=== PATIENT | female | born 1930 | race Hispanic/Latino ===

== ENCOUNTER 2017-06-22 11:10 | Emergency (ER) | payer MEDICARE, BC ==
[2017-06-22 12:16] VITALS: TEMP 98.4
--- NOTE | 2017-06-22 12:17 | ED PDOC ---
Arrival/HPI - History of Present Illness Time/Duration: Prior to Arrival - General Time Seen by Provider: 06/22/17 11:11 - History of Present Illness Narrative History of Present Illness (Text): 06/22/17 12:14 Patient is an 87 F with past medical history of hypertension, arthritis, and dementia presenting to [facility] emergency department by Elma due to call from healthcare workers Nelly and Gilda at patient's residence [address] [place] [address] in [place], [place]. As per patient's niece, she received a call from Nelly stating patient is unable to full care for herself. Endorses that patient normally eats one meal a day and has not been attending the lunches as before. Nelly also endorses that patient has lost a considerable amount of weight. Patient' s family was contacted to see if a 24 hour care or [place] [facility] [place] could be established for patient as assisted living does not meet patient's daily needs. (Romel Arauz) Past Medical History - Provider Review Nursing Documentation Reviewed: Yes - Infectious Disease Hx of Infectious Diseases: None - Reproductive Menopause: Yes - Cardiac Hx Hypotension: Yes - Pulmonary Hx Respiratory Disorders: No - Genitourinary/Gynecological Hx Genitourinary Disorders: No - Psychiatric Hx Psychophysiologic Disorder: No Hx Substance Use: No - Anesthesia Hx Anesthesia: No Family/Social History - Physician Review Nursing Documentation Reviewed: Yes Family/Social History: Other (non-contributory) Smoking Status: Unknown If Ever Smoked Hx Alcohol Use: No Hx Substance Use: No Allergies/Home Meds Allergies/Adverse Reactions: Allergies No Known Allergies Allergy (Verified 06/22/17 11:26) Home Medications: Home Meds Medication Instructions Recorded Confirmed Bimatoprost [Lumigan] 1 drop BOTHEYES HS 06/22/17 06/22/17 Brimonidine Tartrate [Alphagan P 1 drop LEFTEYE DAILY 06/22/17 06/22/17 0.1 % Ophth] Dorzolamide 2%/Timolol 0.5% 1 drop BOTHEYES DAILY 06/22/17 06/22/17 [Cosopt 2%-0.5% Opht] Lisinopril/Hydrochlorothiazide 1 tab PO DAILY 06/22/17 06/22/17 [Lisinopril-Hctz 20-12.5 mg Tab] amLODIPine [Norvasc] 1 tab PO DAILY 06/22/17 06/22/17 traMADol/Acetaminophen [Ultracet 1 tab PO BID 06/22/17 06/22/17 37.5/325 mg] Review of Systems - Review of Systems Constitutional: absent: Fatigue, Weight Change, Fevers, Night Sweats Eyes: absent: Vision Changes ENT: absent: Hearing Changes, Tinnitus Respiratory: absent: SOB, Cough Cardiovascular: absent: Chest Pain, Palpitations Gastrointestinal: absent: Abdominal Pain, Diarrhea, Nausea, Vomiting Genitourinary Female: absent: Dysuria Skin: absent: Rash, Pruritis Neurological: absent: Headache, Dizziness Endocrine: Normal Hemo/Lymphatic: Normal Psychiatric: absent: Anxiety Physical Exam Vital Signs Reviewed: Yes Temperature: Afebrile Blood Pressure: Normal Pulse: Regular Respiratory Rate: Normal Appearance: Positive for: Well-Appearing, Non-Toxic, Comfortable Pain Distress: None Mental Status: Positive for: Alert and Oriented X 3 - Systems Exam Head: Present: Atraumatic, Normocephalic Pupils: Present: PERRL Extroacular Muscles: Present: EOMI Conjunctiva: Present: Normal Mouth: Present: Moist Mucous Membranes Neck: Present: Normal Range of Motion Respiratory/Chest: Present: Clear to Auscultation Cardiovascular: Present: Regular Rate and Rhythm, Normal S1, S2 Abdomen: No: Tenderness, Normal Bowel Sounds Upper Extremity: Present: Normal Inspection. No: Cyanosis, Edema Lower Extremity: No: Normal Inspection (overgrown toe nails bilaterally), Edema Neurological: Present: GCS=15, CN II-XII Intact, Speech Normal Skin: Present: Warm, Dry Psychiatric: Present: Alert, Oriented x 3, Normal Insight, Normal Concentration Vital Signs Temp Pulse Resp BP Pulse Ox 06/22/17 17:56 57 L 18 155/61 H 96 06/22/17 16:00 61 18 158/65 H 96 06/22/17 14:41 60 174/70 H 06/22/17 14:00 59 L 18 168/61 H 96 06/22/17 12:15 98.4 F 56 L 20 181/59 H 95 Medical Decision Making Re-evaluation Time: 18:36 - Lab Interpretations I have reviewed the lab results: Yes Interpretation: No clinic. lab abnormalty (with exception of mild UTI on UA) - RAD Interpretation Enrollment Management Director: Radiologist - EKG Interpretation Type: 12 lead EKG ED Course and Treatment: Patient Seen With Resident: In agreement with resident note which contains more details about the patient. Patient was seen and evaluated with resident. Came up with plan and treatment together. An 87 year old female with loss of appetite, failure to thrive and weight loss. Additional HPI as noted by resident. Ordered EKG, Chest X-ray, labs and Urinalysis. (Tonio Shannon) Explained to patient's family that [place] [facility] [place] care can be established by means of the patient's PMD for further guide on finding a suitable [place] facility. Patient states she feels fine and denies weakness, depression, abdominal pain, dysuria. Due to patient's labs being completely normal with exception of mild UTI, patient will be discharged with keflex. 06/22/17 18:37 (Romel Arauz) - Lab Interpretations Lab Results: 06/22/17 13:30 06/22/17 13:30 Lab Results 06/22/17 15:11: Urine Color Yellow, Urine Appearance Clear, Urine pH 7.0, Ur Specific [place] 1.015, Urine Protein Negative, Urine Glucose (UA) Negative, Urine Ketones Negative, Urine Blood Trace-intact H, Urine Nitrate Negative, Urine Bilirubin Negative, Urine Urobilinogen 0.2, Ur Leukocyte Esterase Moderate H, Urine RBC 0 - 2, Urine WBC 1 - 3, Ur Epithelial Cells 0 - 2, Urine Bacteria Small 06/22/17 13:30: Sodium 145, Potassium 4.4, Chloride 104, Carbon Dioxide 31, Anion Gap 16, BUN 49 H, Creatinine 1.4 H, Est GFR ( Amer) 43, Est GFR ( Non-Af Amer) 35, Random Glucose 95, Calcium 9.7, Phosphorus 3.6, Magnesium 2.1, Total Bilirubin 0.7, AST 21, ALT 26, Alkaline Phosphatase 60, Total Protein 7.4 , Albumin 4.2, Globulin 3.3, Albumin/Globulin Ratio 1.3 06/22/17 13:30: PT 12.0, INR 1.04, APTT 26.2 06/22/17 13:30: WBC 6.8, RBC 3.92, Hgb 11.8 L, Hct 35.9 L, MCV 91.6, MCH 30.1, MCHC 32.9, RDW 12.7, Plt Count 230, MPV 12.3 H, Gran % 67.9, Lymph % (Auto) 22.3 , [place] % (Auto) 8.2 H, Eos % (Auto) 1.3 L, Baso % (Auto) 0.3, Gran # 4.64, Lymph # (Auto) 1.5, [place] # (Auto) 0.6, Eos # (Auto) 0.1, Baso # (Auto) 0.02 - RAD Interpretation Radiology Orders: 06/22/17 11:55 CHEST PORTABLE [RAD] Stat - Medication Orders Current Medication Orders: Amlodipine Besylate (Norvasc) 5 mg PO DAILY [facility] Last Admin: 06/22/17 14:30 Dose: Not Given Non-Admin Reason: Patient Refused Comments: Patient took this morning Hydrochlorothiazide (Microzide) 12.5 mg PO DAILY [facility] Sodium Chloride (Sodium Chloride 0.9%) 1,000 mls @ 80 mls/hr IV .[id number] SRIKANTH Last Admin: 06/22/17 14:29 Dose: 80 mls/hr eMAR Start Stop Document 06/22/17 14:29 SS (Rec: 06/22/17 14:29 SS [id number]) Intravenous Solution Start Date 06/22/17 Start Time 14:29 Lisinopril (Zestril) 20 mg PO DAILY [facility] Discontinued Medications Hydralazine HCl (Apresoline) 5 mg IVP ONCE ONE Stop: 06/22/17 14:24 Last Admin: 06/22/17 14:41 Dose: 5 mg IVP Administration Document 06/22/17 14:41 SS (Rec: 06/22/17 14:41 SS [id number]) Charges for Administration # of IVP Administrations 1 MAR Pulse and Blood Pressure Document 06/22/17 14:41 SS (Rec: 06/22/17 14:41 SS [id number]) Pulse Pulse Rate (60-90) 60 Blood Pressure Blood Pressure (100/60-150/90) 174/70 Disposition/Present on Arrival - Present on Arrival Any Indicators Present on Arrival: No History of DVT/PE: No History of Uncontrolled Diabetes: No Urinary Catheter: No History of Decub. Ulcer: No History Surgical Site Infection Following: None - Disposition Have Diagnosis and Disposition been Completed?: Yes Disposition Time: 18:31 Patient Plan: Discharge - Disposition Diagnosis: Urinary tract infection in elderly patient Disposition: HOME/ ROUTINE Patient Problems: Current Active Problems Problem Status Onset Urinary tract infection in elderly patient Acute Condition: GUARDED Discharge Instructions (ExitCare): Urinary Tract Infection, Adult (DC) Additional Instructions: Mrs. Lorenzana, thank you for letting us take care of you today. The emergency medical care you received today was directed at your acute symptoms. If you were prescribed any medication, please fill it and take as directed. It may take several days for your symptoms to resolve. Return to the Emergency Department if your symptoms worsen, do not improve, or if you have any other problems. Please contact your doctor or call one of the physicians/clinics you have been referred to that are listed on the Patient Visit Information form that is included in your discharge packet. Bring any paperwork you were given at discharge with you along with any medications you are taking to your follow up visit. Our treatment cannot replace ongoing medical care by a primary care provider (PCP) outside of the emergency department. Thank you for allowing the [facility] team to be part of your care today. If you had an X-Ray or CT scan: A Radiologist will review the ED reading if any change in treatment is needed we will contact you. If you had a blood, urine, or wound culture: It will take several days for the results, if any change in treatment is needed we will contact you. If you had an STI test: It will take 48 hours for the results. Please call after 1 week if you have not heard back. Prescriptions: Cephalexin [Keflex] 500 mg PO Q12 #13 capsule Referrals: Barry Falcon MD [Primary Care Provider] - Follow up with primary
[2017-06-22] MEDS ORDERED: Sodium Chloride 0.9% 1,000 ML IV SCH (13:30)
[2017-06-22 13:43] LABS: BASO # 0.02 K/mm3 (0.0-2.0); BASO % 0.3 % (0.0-3.0); EOS # 0.1 (0.0-0.7); EOS % 1.3 % (1.5-5.0); GRAN # 4.64 (1.4-6.5); GRAN % 67.9 % (50.0-68.0); HEMOGLOBIN 11.8 g/dL (12.0-16.0); LYMPH # 1.5 (1.2-3.4); LYMPH % 22.3 % (22.0-35.0); MEAN CELL VOLUME 91.6 fl (80.0-105.0); MEAN CORPUSCULAR HEMOGLOBIN 30.1 pg (25.0-35.0); MEAN CORPUSCULAR HGB CONC 32.9 g/dl (31.0-37.0); MEAN PLATELET VOLUME 12.3 fl (7.0-11.0); MONO # 0.6 (0.1-0.6); MONO % 8.2 % (1.0-6.0); RBC 3.92 10^6/uL (3.5-6.1); RED CELL DISTRIBUTION WIDTH 12.7 % (11.5-14.5); WHITE BLOOD COUNT 6.8 10^3/ul (4.5-11.0)
[2017-06-22 13:48] LABS: INR 1.04 (0.93-1.08); PARTIAL THROMBOPLASTIN TIME 26.2 Seconds (25.1-36.5)
[2017-06-22 13:51] LABS: ALB/GLOB RATIO 1.3 (1.1-1.8); ALBUMIN 4.2 g/dL (3.0-4.8); CALCIUM 9.7 mg/dL (8.4-10.5)
[2017-06-22 14:02] VITALS: RESP 18
[2017-06-22 16:19] LABS: URINE BILIRUBIN NEGATIVE (NEGATIVE); URINE BLOOD TRACE-INTACT (NEGATIVE); URINE GLUCOSE (UA) NEGATIVE (NEGATIVE); URINE LEUKOCYTE ESTERASE MODERATE Leu/uL (NEGATIVE); URINE PROTEIN NEGATIVE mg/dL (<30 mg/dL); URINE UROBILINOGEN 0.2 E.U./dL (<1 E.U./dL)
[2017-06-22 16:28] LABS: URINE APPEARANCE CLEAR (CLEAR); URINE COLOR YELLOW (YELLOW)
[2017-06-22 16:40] LABS: URINE BACTERIA SMALL (NEG); URINE EPITHELIAL CELLS 0 - 2 /hpf (0-5); URINE RBC 0 - 2 /hpf (0-2)
--- NOTE | 2017-06-22 16:53 | CARD ---
APPROVED REPORT EKG Measurement Heart [id number] [place] [id number] <Conclusion> Sinus bradycardia Left ventricular hypertrophy Septal infarct, age undetermined Abnormal ECG
--- NOTE | 2017-06-22 17:12 | RAD ---
HISTORY: General weakness. COMPARISON: No prior. FINDINGS: LUNGS: No active pulmonary disease. PLEURA: No significant pleural effusion identified, no pneumothorax apparent. CARDIOVASCULAR: No radiographic findings to suggest acute or significant cardiovascular disease. OSSEOUS STRUCTURES: No significant abnormalities. Severe degenerative changes both shoulders. VISUALIZED UPPER ABDOMEN: Normal. OTHER FINDINGS: None. IMPRESSION: No active disease.
[2017-06-22 17:56] VITALS: BP 155/61
[2017-06-22 18:52] VITALS: PULSE 62; O2SAT 99
[2017-06-23] MEDS ORDERED: Albuterol-Ipratrop 3 mg / 0.5 (3 ml) UD ONE (00:38)
== END 2017-06-22 20:19 | disposition home or self-care (01) ==
LOC: ED 11:10
DX: N39.0 Urinary tract infection, site not specified (principal); I10 Essential (primary) hypertension; F03.90 Unspecified dementia, unspecified severity, without behavioral disturbance, psychotic disturbance, mood disturbance, and anxiety; M19.90 Unspecified osteoarthritis, unspecified site
CPT/HCPCS: 71045; 80053; 81001; 83735; 84100; 85025; 85610; 85730; 87086; 93005; 96374; 99285; J0360; J7040

== ENCOUNTER 2017-08-07 11:20 | Emergency (ER) | payer MEDICARE, BC ==
--- NOTE | 2017-08-07 11:48 | ED PDOC ---
Arrival/HPI - General Chief Complaint: Shortness Of Breath Time Seen by Provider: 08/07/17 11:28 Historian: Patient - History of Present Illness Narrative History of Present Illness (Text): 08/07/17 11:41 A 87 year old female, whose past medical history includes hypertension, arthritis, and dementia, who was brought in by ambulance to the emergency department for shortness of breath that was present upon awakening today. Here in the ER, patient denies any complaints. Limited HPI and ROS because patient is a poor historian due to dementia. PMD Barry Falcon Past Medical History - Provider Review Nursing Documentation Reviewed: Yes - Infectious Disease Hx of Infectious Diseases: None - Reproductive Menopause: Yes - Cardiac Hx Hypotension: Yes - Pulmonary Hx Respiratory Disorders: No - Genitourinary/Gynecological Hx Genitourinary Disorders: No - Psychiatric Hx Psychophysiologic Disorder: No Hx Substance Use: No - Anesthesia Hx Anesthesia: No Family/Social History - Physician Review Nursing Documentation Reviewed: Yes Family/Social History: No Known Family HX Smoking Status: Unknown If Ever Smoked Hx Alcohol Use: No Hx Substance Use: No Allergies/Home Meds Allergies/Adverse Reactions: Allergies No Known Allergies Allergy (Verified 08/07/17 11:33) Home Medications: Home Meds Medication Instructions Recorded Confirmed Fosinopril Sodium 10 mg PO DAILY 08/07/17 08/07/17 Review of Systems - Review of Systems Systems not reviewed;Unavailable: Dementia Physical Exam - Physical Exam Narrative Physical Exam (Text): Constitutional: No acute distress. Elderly female. Head: Normocephalic. Atraumatic. Eyes: PERRL. ENT: Moist mucous membranes. Neck: Supple. Cardiovascular: Regular rate. Chest: No tenderness. Respiratory: Clear to auscultation bilaterally. GI: Soft. Nontender. Nondistended. Back: No CVA tenderness. Musculoskeletal: No tenderness or swelling of extremities. Skin: No rash. Neurologic: Alert and oriented x 1 (patient does not know where she is, and believes the year is 1917), no focal deficit. Vital Signs Temp Pulse Resp BP Pulse Ox 08/07/17 12:13 17 98 08/07/17 11:40 98.4 F 67 18 172/64 H 99 Medical Decision Making ED Course and Treatment: 08/07/17 11:45 Impression: 87 year old female brought in for resolved shortness of breath. No acute findings on physical exam except patient is alert and oriented x 1. Plan: -- Chest X-ray -- Labs -- Urinalysis -- Reassess and disposition Prior Visits: Notes and results from previous visits were reviewed. Patient was last seen in the emergency department on 06/22/2017 for UTI. Patient was discharged home. Progress Notes: 08/07/2017 12:20 Chest X-ray IMPRESSION: No active pulmonary disease. Dictator: Kady Tamez called the Emergency department, informs me that patient often has complaints that bring her to the ER and then is found to have no acute findings and is sent home. Family and hospitals have attempted to place patient in NH or with help at home but patient has been very difficult to deal with, sending helpers away, using foul language, and refusing to go to NH. Patient has no POA and makes her own decisions. Currently, patient states she can get back into her apartment at a [facility] and would like visiting help. [place] social service liaison, called family and patient needs to be seen by Dr. Jessica Falcon for orders to initiate visiting home health attendant. - Lab Interpretations Lab Results: 08/07/17 12:13 08/07/17 12:13 Lab Results 08/07/17 12:13: Sodium 147, Potassium 4.1, Chloride 109 H, Carbon Dioxide 27, Anion Gap 15, BUN 48 H, Creatinine 1.4 H, Est GFR ( Amer) 43, Est GFR ( Non-Af Amer) 35, Random Glucose 100, Calcium 9.4, Total Bilirubin 0.5, AST 13 L D, ALT 19, Alkaline Phosphatase 58, Total Protein 6.8, Albumin 3.8, Globulin 2.9 , Albumin/Globulin Ratio 1.3 08/07/17 12:13: WBC 5.7, RBC 3.45 L, Hgb 10.3 L, Hct 31.4 L, MCV 91.0, MCH 29.9 , MCHC 32.8, RDW 13.6, Plt Count 200, MPV 11.4 H, Gran % 69.1 H, Lymph % (Auto) 19.4 L, [place] % (Auto) 10.4 H, Eos % (Auto) 0.7 L, Baso % (Auto) 0.4, Gran # 3.91 , Lymph # (Auto) 1.1 L, [place] # (Auto) 0.6, Eos # (Auto) 0.0, Baso # (Auto) 0.02 I have reviewed the lab results: Yes - RAD Interpretation Radiology Orders: 08/07/17 11:46 CHEST PORTABLE [RAD] Stat - Scribe Statement The provider has reviewed the documentation as recorded by the Kateibalena Jama Provider Scribe Attestation: All medical record entries made by the Scribe were at my direction and personally dictated by me. I have reviewed the chart and agree that the record accurately reflects my personal performance of the history, physical exam, medical decision making, and the department course for this patient. I have also personally directed, reviewed, and agree with the discharge instructions and disposition. Disposition/Present on Arrival - Present on Arrival Any Indicators Present on Arrival: No History of DVT/PE: No History of Uncontrolled Diabetes: No Urinary Catheter: No History of Decub. Ulcer: No History Surgical Site Infection Following: None - Disposition Have Diagnosis and Disposition been Completed?: Yes Diagnosis: Dyspnea Disposition: HOME/ ROUTINE Disposition Time: 14:10 Patient Plan: Discharge Condition: STABLE Referrals: Barry Falcon MD [Family Provider] - Follow up with primary Forms: Zighra (Bengali)
[2017-08-07 12:19] LABS: BASO # 0.02 K/mm3 (0.0-2.0); BASO % 0.4 % (0.0-3.0); EOS % 0.7 % (1.5-5.0); GRAN # 3.91 (1.4-6.5); GRAN % 69.1 % (50.0-68.0); HEMOGLOBIN 10.3 g/dL (12.0-16.0); LYMPH # 1.1 (1.2-3.4); LYMPH % 19.4 % (22.0-35.0); MEAN CORPUSCULAR HEMOGLOBIN 29.9 pg (25.0-35.0); MEAN CORPUSCULAR HGB CONC 32.8 g/dl (31.0-37.0); MEAN PLATELET VOLUME 11.4 fl (7.0-11.0); MONO # 0.6 (0.1-0.6); MONO % 10.4 % (1.0-6.0); RBC 3.45 10^6/uL (3.5-6.1); RED CELL DISTRIBUTION WIDTH 13.6 % (11.5-14.5); WHITE BLOOD COUNT 5.7 10^3/ul (4.5-11.0)
--- NOTE | 2017-08-07 12:22 | RAD ---
HISTORY: resolved shortness of breath COMPARISON: 06/22/2017. FINDINGS: LUNGS: The lungs are well inflated and clear. PLEURA: No significant pleural effusion identified, no pneumothorax apparent. CARDIOVASCULAR: Normal. OSSEOUS STRUCTURES: No significant abnormalities. VISUALIZED UPPER ABDOMEN: Normal. OTHER FINDINGS: There is chronic elevation of the right hemidiaphragm. IMPRESSION: No active pulmonary disease.
[2017-08-07 12:31] LABS: ALB/GLOB RATIO 1.3 (1.1-1.8); ALBUMIN 3.8 g/dL (3.0-4.8); CALCIUM 9.4 mg/dL (8.4-10.5)
[2017-08-07 16:44] VITALS: BP 150/62; PULSE 69; RESP 17; TEMP 98.2; O2SAT 98
--- NOTE | 2017-08-08 07:49 | CARD ---
APPROVED REPORT EKG Measurement Heart [id number] <Conclusion> Normal sinus rhythm Normal ECG
== END 2017-08-07 16:47 | disposition home or self-care (01) ==
LOC: ED 11:20
DX: R06.00 Dyspnea, unspecified (principal); I10 Essential (primary) hypertension; F03.90 Unspecified dementia, unspecified severity, without behavioral disturbance, psychotic disturbance, mood disturbance, and anxiety

== ENCOUNTER 2017-08-07 22:08 | Inpatient (IN) | payer MEDICARE, BC ==
[2017-08-08 00:16] LABS: BASO # 0.03 K/mm3 (0.0-2.0); BASO % 0.5 % (0.0-3.0); EOS # 0.1 (0.0-0.7); GRAN # 3.6 (1.4-6.5); GRAN % 60.6 % (50.0-68.0); HEMOGLOBIN 10.3 g/dL (12.0-16.0); LYMPH # 1.8 (1.2-3.4); LYMPH % 29.7 % (22.0-35.0); MEAN CELL VOLUME 90.7 fl (80.0-105.0); MEAN CORPUSCULAR HEMOGLOBIN 29.9 pg (25.0-35.0); MEAN PLATELET VOLUME 11.3 fl (7.0-11.0); MONO # 0.5 (0.1-0.6); MONO % 8.2 % (1.0-6.0); RBC 3.44 10^6/uL (3.5-6.1); RED CELL DISTRIBUTION WIDTH 13.4 % (11.5-14.5)
--- NOTE | 2017-08-08 00:19 | ED PDOC ---
Arrival/HPI - General Chief Complaint: Psychiatric Evaluation Time Seen by Provider: 08/07/17 22:10 Historian: Patient - History of Present Illness Narrative History of Present Illness (Text): 08/08/17 22:24 87 year old female, with past medical history of hypertension, arthritis, and dementia, presents to the Emergency department accompanied by BPD for psychiatric evaluation tonight. Patient was seen in the Emergency department earlier today for shortness of breath and was discharged home after negative workup and treatment. However, due to questionable disposition, social service was called for the patient, who believed patient is cleared to go home with her house nurse. After reaching home, patient presented unusual behavior and EMS was notified. Patient now presents to the Emergency department for psychiatric evaluation for her behavior. Patient denies any fever, chills, nausea, vomiting , diarrhea, abdominal pain, chest pain, shortness of breath or any other complaints. Time/Duration: Prior to Arrival Symptom Onset: Gradual Activities at Onset: Light Context: Home Past Medical History - Provider Review Nursing Documentation Reviewed: Yes - Infectious Disease Hx of Infectious Diseases: None - Cardiac Hx Hypotension: Yes - Pulmonary Hx Respiratory Disorders: No - Genitourinary/Gynecological Hx Genitourinary Disorders: No - Psychiatric Hx Psychophysiologic Disorder: No Hx Substance Use: No - Anesthesia Hx Anesthesia: No Family/Social History - Physician Review Nursing Documentation Reviewed: Yes Family/Social History: No Known Family HX Smoking Status: Unknown If Ever Smoked Hx Alcohol Use: No Hx Substance Use: No Allergies/Home Meds Allergies/Adverse Reactions: Allergies No Known Allergies Allergy (Verified 08/07/17 11:33) Home Medications: Home Meds Medication Instructions Recorded Confirmed Fosinopril Sodium 10 mg PO DAILY 08/07/17 08/08/17 Bimatoprost [Lumigan 2.5 ml] 0.01 % BOTHEYES HS 08/08/17 08/08/17 Brimonidine Tartrate [Alphagan P 1 drop LEFTEYE TID 08/08/17 08/08/17 0.1 % Ophth] Dorzolamide 2%/Timolol 0.5% 1 drop BOTHEYES BID 08/08/17 08/08/17 [Cosopt Ocumeter Plus 2%-0.5% 10 Ml] Lisinopril/Hydrochlorothiazide 1 each PO BID 08/08/17 08/08/17 [Lisinopril-Hctz 20-12.5 mg Tab] amLODIPine [Norvasc] 5 mg PO DAILY 08/08/17 08/08/17 Review of Systems - Physician Review All systems were reviewed & negative as marked: Yes - Review of Systems Constitutional: Normal. absent: Fevers Eyes: Normal ENT: Normal Respiratory: Normal. absent: SOB Cardiovascular: Normal. absent: Chest Pain Gastrointestinal: Normal. absent: Abdominal Pain, Diarrhea, Nausea, Vomiting Genitourinary Female: Normal Musculoskeletal: Normal Skin: Normal Neurological: Normal Endocrine: Normal Hemo/Lymphatic: Normal Psychiatric: Normal Physical Exam Vital Signs Reviewed: Yes Vital Signs Temp Pulse Resp BP Pulse Ox 08/08/17 09:16 98.2 F 62 18 132/79 98 08/08/17 08:00 98.2 F 62 18 132/79 98 08/08/17 07:13 60 18 139/52 L 99 08/08/17 06:30 60 19 154/65 H 98 08/08/17 04:50 64 18 154/60 H 100 08/07/17 22:26 98.1 F 76 18 156/74 H 99 Temperature: Afebrile Blood Pressure: Normal Pulse: Regular Respiratory Rate: Normal Appearance: Positive for: Well-Appearing, Non-Toxic, Comfortable Pain Distress: None Mental Status: Positive for: Confused - Systems Exam Head: Present: Atraumatic, Normocephalic Pupils: Present: PERRL Extroacular Muscles: Present: EOMI Conjunctiva: Present: Normal Mouth: Present: Moist Mucous Membranes Neck: Present: Normal Range of Motion Respiratory/Chest: Present: Clear to Auscultation, Good Air Exchange. No: Respiratory Distress, Accessory Muscle Use Cardiovascular: Present: Regular Rate and Rhythm, Normal S1, S2. No: Murmurs Abdomen: No: Tenderness, Distention, Peritoneal Signs Back: Present: Normal Inspection Upper Extremity: Present: Normal Inspection. No: Cyanosis, Edema Lower Extremity: Present: Normal Inspection. No: Edema Neurological: Present: GCS=15, CN II-XII Intact, Speech Normal Skin: Present: Warm, Dry, Normal Color. No: Rashes Psychiatric: Present: Alert (Confused) Medical Decision Making ED Course and Treatment: 08/08/17 22:24 Impression: 87 year old female presents to the Emergency department for psychiatric evaluation. Plan: -- EKG -- Labs -- Chest X-ray -- Urinalysis -- Reassess and disposition Prior Visits: Notes and results from previous visits were reviewed. Progress Notes: 08/08/17 02:10 Patient evaluated by PES at bedside, who believes patient is psychiatrically cleared. However, due to patient's current current state of dementia, PES requests social service consult/admission for the patient. pt refuses to stay in hospital, pt was evaluated by social staff worker yesterday and dcd pt medicated for anxiety , will now stay in [facility] dr valle accepts case - Lab Interpretations Lab Results: 08/07/17 23:59 08/08/17 00:00 Lab Results 08/08/17 04:40: Urine Opiates Screen Negative, Urine Methadone Screen Negative, Ur Barbiturates Screen Negative, Ur Phencyclidine Scrn Negative, Ur Amphetamines Screen Negative, U Benzodiazepines Scrn Negative, U Oth Cocaine Metabols Negative, U Cannabinoids Screen Negative 08/08/17 04:40: Urine Color Yellow, Urine Appearance Sl cloudy, Urine pH 6.5, Ur Specific [place] 1.010, Urine Protein Negative, Urine Glucose (UA) Negative, Urine Ketones Negative, Urine Blood Trace-lysed H, Urine Nitrate Negative, Urine Bilirubin Negative, Urine Urobilinogen 0.2, Ur Leukocyte Esterase Large H , Urine RBC 0 - 2, Urine WBC 10 - 15, Ur Epithelial Cells 1 - 3, Urine Bacteria Few 08/08/17 00:00: Alcohol, Quantitative < 10 08/08/17 00:00: Salicylates < 1 L, Acetaminophen < 10.0 L 08/08/17 00:00: Sodium 147, Potassium 3.8, Chloride 108 H, Carbon Dioxide 28, Anion Gap 14, BUN 42 H, Creatinine 1.3 H, Est GFR ( Amer) 47, Est GFR ( Non-Af Amer) 39, Random Glucose 88, Calcium 9.4, Magnesium 2.2, Total Bilirubin 0.8, AST 20, ALT 16, Alkaline Phosphatase 55, Total Protein 6.7, Albumin 3.8, Globulin 2.9, Albumin/Globulin Ratio 1.3 08/07/17 23:59: WBC 6.0, RBC 3.44 L, Hgb 10.3 L, Hct 31.2 L, MCV 90.7, MCH 29.9 , MCHC 33.0, RDW 13.4, Plt Count 193, MPV 11.3 H, Gran % 60.6, Lymph % (Auto) 29.7, [place] % (Auto) 8.2 H, Eos % (Auto) 1.0 L, Baso % (Auto) 0.5, Gran # 3.60, Lymph # (Auto) 1.8, [place] # (Auto) 0.5, Eos # (Auto) 0.1, Baso # (Auto) 0.03 - EKG Interpretation EKG Interpretation (Text): 08/08/17 06:14 nsr rate 63 nssts changes - Medication Orders Current Medication Orders: Acetaminophen (Tylenol 325mg Tab) 650 mg PO Q4H PRN PRN Reason: Pain, Mild (1-3) Aspirin (Aspirin Chewable) 81 mg PO DAILY [facility] Last Admin: 08/08/17 11:57 Dose: Not Given Non-Admin Reason: Patient Lethargic Enoxaparin Sodium (Lovenox) 30 mg SC DAILY SRIKANTH PRN Reason: Protocol Last Admin: 08/08/17 11:57 Dose: 30 mg Subcutaneous Administrations Document 08/08/17 11:57 VS (Rec: 08/08/17 11:58 VS [id number]) Injection Site MAR Injection Site Right Abdomen Charges for Administration # of Subcutaneous Administrations 1 Hydralazine HCl (Apresoline) 10 mg IVP Q6 PRN PRN Reason: Other Dextrose/Sodium Chloride (Dextrose 5%/0.45% Ns 1000 Ml) 1,000 mls @ 50 mls/hr IV .Q20H [facility] Last Admin: 08/08/17 12:40 Dose: 50 mls/hr eMAR Start Stop Document 08/08/17 12:40 VS (Rec: 08/08/17 12:40 VS [id number]) Intravenous Solution Start Date 08/08/17 Start Time 12:40 End Date 08/08/17 Cefepime HCl (Maxipime 1gm) 1 gm in 100 mls @ 100 mls/hr IVPB Q12 [facility]KAN[facility] PRN Reason: Protocol Stop: 08/16/17 22:01 Lisinopril (Zestril) 20 mg PO QPM [facility] Last Admin: 08/08/17 18:26 Dose: 20 mg MAR Pulse and Blood Pressure Document 08/08/17 18:26 VS (Rec: 08/08/17 18:27 VS [id number]) Pulse Pulse Rate (60-90) 61 Blood Pressure Blood Pressure (100/60-150/90) 162/70 Pantoprazole Sodium (Protonix Inj) 40 mg IVP DAILY [facility] Last Admin: 08/08/17 11:58 Dose: 40 mg IVP Administration Document 08/08/17 11:58 VS (Rec: 08/08/17 11:58 VS [place] [id number]) Charges for Administration # of IVP Administrations 1 Discontinued Medications Cephalexin Monohydrate (Keflex) 500 mg PO BID STA PRN Reason: Protocol Stop: 08/08/17 08:43 Last Admin: 08/08/17 09:02 Dose: 500 mg Haloperidol (Haldol) 0.5 mg PO STAT STA PRN Reason: Protocol Stop: 08/08/17 18:12 Last Admin: 08/08/17 18:27 Dose: 0.5 mg Behavioural Document 08/08/17 18:27 VS (Rec: 08/08/17 18:27 VS [place] [id number]) Maintenance Maintenance Dose No Nonmedicinal Nonmedicinal Interventions See nurse's notes Behavior Behavior for Medication: Continuous pacing/restlessness Pulling IV lines/tubes/ catheter Re-Assess: Reassess Psych Meds Document 08/08/17 19:27 VS (Rec: 08/08/17 19:29 VS [facility] [id number]) Reassess Psych Med Effective Hydralazine HCl (Apresoline) 10 mg IVP Q6 [facility] Last Admin: 08/08/17 18:24 Dose: Not Given Non-Admin Reason: BP Parameters Not Met MAR Pulse and Blood Pressure Document 08/08/17 18:24 VS (Rec: 08/08/17 18:24 VS [place] [id number]) Pulse Pulse Rate (60-90) 61 Blood Pressure Blood Pressure (100/60-150/90) 162/70 Ceftriaxone Sodium (Rocephin 1 Gram Ivpb) 1 gm in 100 mls @ 100 mls/hr IVPB DAILY [facility] PRN Reason: Protocol Last Admin: 08/08/17 11:58 Dose: 100 mls/hr eMAR Start Stop Document 08/08/17 11:58 VS (Rec: 08/08/17 11:58 VS [id number]) Intravenous Solution Start Date 08/08/17 Start Time 11:58 End Date 07/04/18 End time 12:58 Total Infusion Time 60 Dextrose/Sodium Chloride (Dextrose 5%/0.45% Ns 1000 Ml) 1,000 mls @ 70 mls/hr IV .[id number] [facility] Last Admin: 08/08/17 13:12 Dose: eMAR Start Stop Document 08/08/17 13:12 VS (Rec: 08/08/17 13:12 VS [id number]) Intravenous Solution Start Date 08/08/17 Vancomycin HCl (Vancomycin 1gm) 1 gm in 250 mls @ 167 mls/hr IVPB STAT STA PRN Reason: Protocol Stop: 08/08/17 15:23 Last Admin: 08/08/17 16:15 Dose: 167 mls/hr eMAR Start Stop Document 08/08/17 16:15 VS (Rec: 08/08/17 16:16 VS [id number]) Intravenous Solution Start Date 08/08/17 Start Time 16:16 End Date 08/08/17 End time 17:46 Total Infusion Time 90 Lisinopril (Zestril) 10 mg PO DAILY [facility] Last Admin: 08/08/17 11:58 Dose: Not Given Non-Admin Reason: Patient Lethargic Lorazepam (Ativan) 0.5 mg IVP ONCE ONE PRN Reason: Protocol Stop: 08/08/17 06:58 Last Admin: 08/08/17 07:09 Dose: 0.5 mg Comments: due to agitation. IVP Administration Document 08/08/17 07:09 RD (Rec: 08/08/17 07:10 RD [id number]) Charges for Administration # of IVP Administrations 1 Pneumococcal Polyvalent Vaccine (Pneumovax 23 Vaccine) 0.5 ml IM .ONCE ONE Stop: 08/08/17 13:38 - Scribe Statement The provider has reviewed the documentation as recorded by the Scribe Kaitlyn Vallejo. All medical record entries made by the Kateibalena were at my direction and personally dictated by me. I have reviewed the chart and agree that the record accurately reflects my personal performance of the history, physical exam, medical decision making, and the department course for this patient. I have also personally directed, reviewed, and agree with the discharge instructions and disposition. Disposition/Present on Arrival - Present on Arrival Any Indicators Present on Arrival: No History of DVT/PE: No History of Uncontrolled Diabetes: No Urinary Catheter: No History of Decub. Ulcer: No History Surgical Site Infection Following: None - Disposition Have Diagnosis and Disposition been Completed?: Yes Diagnosis: Altered mental status, UTI (urinary tract infection) Disposition: HOSPITALIZED Disposition Time: 06:35 Condition: FAIR
[2017-08-08 00:46] LABS: ACETAMINOPHEN < 10.0 ug/ml (10.0-20.0); SALICYLATE < 1 mg/dL (2.0-20.0)
[2017-08-08 01:05] LABS: ALB/GLOB RATIO 1.3 (1.1-1.8); ALBUMIN 3.8 g/dL (3.0-4.8); CALCIUM 9.4 mg/dL (8.4-10.5)
[2017-08-08 04:50] LABS: PH,URINE 6.5 (4.7-8.0); URINE BILIRUBIN NEGATIVE (NEGATIVE); URINE BLOOD TRACE-LYSED (NEGATIVE); URINE GLUCOSE (UA) NEGATIVE (NEGATIVE); URINE LEUKOCYTE ESTERASE LARGE Leu/uL (NEGATIVE); URINE PROTEIN NEGATIVE mg/dL (<30 mg/dL); URINE UROBILINOGEN 0.2 E.U./dL (<1 E.U./dL)
[2017-08-08 04:51] LABS: URINE COLOR YELLOW (YELLOW)
[2017-08-08 04:52] LABS: URINE APPEARANCE SL CLOUDY (CLEAR)
[2017-08-08 05:46] LABS: URINE BACTERIA FEW (NEG); URINE RBC 0 - 2 /hpf (0-2)
[2017-08-08 06:10] LABS: BARBITURATES, UR NEGATIVE (NEGATIVE); BENZODIAZEPINES, UR NEGATIVE (NEGATIVE); OPIATES, UR NEGATIVE (NEGATIVE); PHENCYCLIDINE, UR NEGATIVE (NEGATIVE)
--- NOTE | 2017-08-08 09:06 | CT ---
PROCEDURE: CT HEAD WITHOUT CONTRAST. HISTORY: Altered mental status. COMPARISON: None available. TECHNIQUE: Axial computed tomography images were obtained through the head/brain without intravenous contrast. Coronal and sagittal reconstructed images. Radiation dose: Total exam DLP = 809.64 mGy-cm. This CT exam was performed using one or more of the following dose reduction techniques: Automated exposure control, adjustment of the mA and/or kV according to patient size, and/or use of iterative reconstruction technique. FINDINGS: HEMORRHAGE: No intracranial hemorrhage. BRAIN: No mass effect or edema. Cortical and cerebellar atrophy, periventricular small vessel disease. 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 VENTRICLES: Unremarkable. No hydrocephalus. CALVARIUM: Unremarkable. PARANASAL SINUSES: Unremarkable as visualized. No significant inflammatory changes. MASTOID AIR CELLS: Unremarkable as visualized. No inflammatory changes. OTHER FINDINGS: None. IMPRESSION: No acute intracranial abnormalities. No significant findings to account for the clinical presentation.
[2017-08-08] MEDS ORDERED: cefTRIAXone 1 gm 1 GM/100 ML BAG IVPB SCH (11:00)
[2017-08-08 11:44] LABS: BASO # 0.02 K/mm3 (0.0-2.0); BASO % 0.4 % (0.0-3.0); EOS % 0.8 % (1.5-5.0); GRAN # 3.38 (1.4-6.5); GRAN % 63.9 % (50.0-68.0); HEMOGLOBIN 11.1 g/dL (12.0-16.0); LYMPH # 1.3 (1.2-3.4); LYMPH % 25.4 % (22.0-35.0); MEAN CELL VOLUME 90.6 fl (80.0-105.0); MEAN CORPUSCULAR HEMOGLOBIN 29.8 pg (25.0-35.0); MEAN CORPUSCULAR HGB CONC 32.8 g/dl (31.0-37.0); MEAN PLATELET VOLUME 11.5 fl (7.0-11.0); MONO # 0.5 (0.1-0.6); MONO % 9.5 % (1.0-6.0); RBC 3.73 10^6/uL (3.5-6.1); RED CELL DISTRIBUTION WIDTH 13.3 % (11.5-14.5); WHITE BLOOD COUNT 5.3 10^3/ul (4.5-11.0)
[2017-08-08] MEDS ORDERED: Dextrose 50% SYRINGE Inj (50 ml) ONE (11:46)
--- NOTE | 2017-08-08 11:54 | PCM.RRT ---
<Dean Mahajan - Last Filed: 08/09/17 07:29> SNACK FOODS MIXER OPERATOR Nurse Assessment - Situation Date: 08/08/17 Time SNACK FOODS MIXER OPERATOR was called: 11:40 SNACK FOODS MIXER OPERATOR Responder Arrival Time: 11:41 SNACK FOODS MIXER OPERATOR Location:: [address] [place] [address] Room Number: [id number] SNACK FOODS MIXER OPERATOR Reason for Call: Change in Mental Status SNACK FOODS MIXER OPERATOR Called By: RN - IV IV Inserted during SNACK FOODS MIXER OPERATOR?: No - Respiratory Oxygen Delivery Method: Nasal Cannula @L/min Oxygen Flow Rate: 2 Received Nebulizer Treatments:: No Was the Patient Ventilated with Bag/Mask 100% O2?: No Secretions Suctioned?: No Was the Patient Intubated?: No Was the Patient Placed on a Ventilator?: No - Diagnostic Test Ordered EKG: No Chest X-Ray: No CT Scan: No CPR started during SNACK FOODS MIXER OPERATOR?: No - Finger Stick Blood Glucose Finger Stick Blood Glucose: 67 - Margie Coma Scale Coma Scale Eye Opening: To verbal stimuli Coma Scale Motor: Obeys Commands Movement Coma Scale Verbal: Confused/able to answer - Recommendations 5) SNACK FO[employer]S MIXER OPERATOR Level of Care Recommendations: Remain in current setting Notifications: Attending Physician I.Reason for SNACK FOODS MIXER OPERATOR - A) Acute Change in Patient: Subjective: SNACK FOODS MIXER OPERATOR was called by nursing staff after patient was noted to have increased lethargy and decreased responsiveness to verbal stimuli. Patient was noted to have blood pressure of 208/71 prior to SNACK FOODS MIXER OPERATOR and RN was walking into the patients room to administer PRN HTN medication when she found the patient to be more lethargic compared to her previous exam. When she was unresponsive to RN's verbal stimuli the SNACK FOODS MIXER OPERATOR was called. Patient was admitted for increased agitation and was given IVP Ativan in the ED this AM. She was found to have a UTI on a UA , for which she was started on Rocephin, and previously mentioned HTN but a CT head, routine labs, oxygen saturation and UDS were without any significant abnormalities. She was found to have a BG of 65 and was given one amp of D50 during SNACK FOODS MIXER OPERATOR. - Neurological Status (Select all that apply): Follows Commands, Lethargic - Respiratory Oxygen Delivery Method: Nasal Cannula @L/min Oxygen Flow Rate: 2 - Constitutional Appears: No Acute Distress Additional Comments: Lethargic - Head Head Exam: ATRAUMATIC, NORMOCEPHALIC - Eyes Eye Exam: EOMI, Normal appearance, PERRL - Respiratory Exam Respiratory Exam: Clear to Ausculation Bilateral, NORMAL BREATHING PATTERN. absent: Accessory Muscle Use, Chest Wall Tenderness, Decreased Breath Sounds, Prolonged Expiratory Phase, Rales, Rhonchi, Wheezes, Respiratory Distress, Stridor - Cardiovascular Exam Cardiovascular Exam: REGULAR RHYTHM, RRR, +S1, +S2. absent: Bradycardia, Tachycardia, Clicks, Diastolic murmur, Gallop, Irregular Rhythm, JVD, Rubs, +S4 , Murmur - GI/Abdominal Exam GI & Abdominal Exam: Soft, Normal Bowel Sounds. absent: Tenderness - Neurological Exam Neurological Exam: Altered Additional exam: Obeys commands and opens eyes upon verbal stimuli - Extremities Exam Extremities Exam: Normal Capillary Refill Plan - Assessment of Findings&Treatment Plan 1. Increased Lethargy -CT Head, EKG, VS and Labs from today reviewed -Likely secondary to Ativan IVP in ED -EKG showed NSR without significant ST-T wave abnormalities -Aspiration precautions and HOB above 30 degrees -Continue to monitor mental status and VS -BP controlled with PRN HTN medication -PCP notified (Dr. Jacobsne) Patient seen and case discussed with attending Makenzie PGY2 <Vanessa Schultz - Last Filed: 08/09/17 08:21> SNACK FOODS MIXER OPERATOR Nurse Assessment - Vital Signs Vital Sign: Rapid Response Vital Sign Blood Pressure 208/71 Pulse Rate 48 Respiratory Rate 16 Temperature 96.9 F Oxygen Saturation 96 - Vital Signs at end of SNACK FOODS MIXER OPERATOR Vital Signs at end of SNACK FOODS MIXER OPERATOR: Rapid Response End Vital Sign Blood Pressure 158/87 Pulse Rate 63 Respiratory Rate 13 Temperature 96.9 F O2 Sat by Pulse Oximetry 98 Attending/Attestation - Attestation I have personally seen and examined this patient.: Yes I have fully participated in the care of the patient.: Yes I have reviewed all pertinent clinical information, including history, physical exam and plan: Yes Notes (Text): Patient was seen and examined by me with resident at time of rapid response . Case was discussed with resident. Agree with above with following additions and changes. Rapid response was called 11:40 AM for patient being lethargic. Patient presented to the hospital with agitation. Patient was given Ativan in the emergency room. Time of rapid response, patient was lethargic but arousable. Patient was answered questions. Lethargy was likely secondary to Ativan. Patient also had elevated blood pressure at the time of rapid response. Patient was given hydralazine with improvement. We will follow patient for improvement in mental status. Primary care doctor notified. Physical exam: Gen: Patient lethargic and in no acute distress HEENT: Normocephalic and atraumatic. Pupils equal and reactive. Oropharynx is pink. Neck supple. Pulmonary: Normal respiratory effort. No rhonchi rales or wheezing appreciated. Cardiovascular: Normal rhythm. Normal S1 and S2. Gastrointestinal: Soft, nontender, nondistended, positive bowel sounds all 4 quadrants Musculoskeletal: Moving all extremities Central nervous system: Lethargic but arousable. Answering questions.
[2017-08-08] MEDS: Enoxaparin 30 mg Syringe SC SCH (11:57)
[2017-08-08 12:24] LABS: ALB/GLOB RATIO 1.2 (1.1-1.8); ALBUMIN 3.6 g/dL (3.0-4.8); CALCIUM 9.2 mg/dL (8.4-10.5)
[2017-08-08] MEDS ORDERED: Dextrose 5%/0.45% NS 1,000 ML IV SCH (12:30)
[2017-08-08] MEDS: Dextrose 5%/0.45% NS 1,000 ML IV SCH (12:40)
--- NOTE | 2017-08-08 12:40 | CP.PCM.CON ---
History of Present Illness - History of Present Illness History of Present Illness: Nephrology Consultation Note: Assessment: stable Altered mental status with likely UTI and some contribution by HTN urgency Baseline dementia CKD stage 3 HTN (I12.9) ANemia Hypernatremia Plan No acute need for renal replacement therapy at this time. Hypertension control with meds as ordered. pt unable to take PO meds as per RN. agree with IV hydralazine for now. will increase ACEi dose once pt able to take po IVF as D5W 0.45% saline @ 50 ml/hr Monitor I/O, daily weights and renal function. check urine pro/cr, urine Na. renal sonogram once stable Dose meds/antibiotics for reduced GFR. Avoid fleets enema/magnesium based laxatives. Avoid nephrotoxins/NSAIDs/ iodinated contrast (unless needed emergently) Glycemic control, Further work up for as per primary team. Thanks for allowing me to participate in care of your patient. Will follow with you. Please call if any Qs. had d/w team Dr Eliseo Johnson Office: [phone] Chief Complaint; Unable to obtain reason for consult: HTN and CKD HPI: Pt is a 87 y/o F with hx of HTN, CKD stage 3 with baseline serum cr 1.4, dementia, osteoarthritis came with behavioral changes. she had CAT DRIVER today for AMS , BP at that time increased to 200 range renal consult for CKD and HTN management. pt unable to provide any hx ROS: unable to obtain from pt Physical Examination: General Appearance: Comfortable, in no acute respiratory distress, co- operative. thin built elderly female lying in position and appears malnourished Vitals reviewed and noted as below Head; Atraumatic, normocephalic ENT: no ulcers no thrush. Tongue is midline/moist. Oropharynx: no rash or ulcers. EYES: Pupils are equal, round and reactive to light accommodation. Eye muscles and extraocular movement intact. Sclera is anicteric. Neck; supple no lymphadenopathy, no thyromegaly or bruit Lungs: Normal respiratory rate/effort. Breath sounds appears decreased at bases but poor inspiratory efforts Heart: Normal rate. s1s2 normal. No rub or gallop. Extremities: trace edema. No varicose veins Neurological: Patient is alert, awake and demented Skin: dry and warm. Normal turgor. No rash. Palpitation: Normal elasticity for age Abdomen: Abdomen is soft non tender no apparent organomegaly but exam limited due to her position Psych: unable MSK: no specific joint tenderness or swelling. Digits and nails normal, no deformity : kidney or bladder not palpable. Labs/imaging/EKG reviewed. Past medical history, past surgical history, social history, allergy reviewed and noted as below Family hx; unable to obtain Work up: UA with large LE CXR normal Past Patient History - Infectious Disease Hx of Infectious Diseases: None - Past Social History Smoking Status: Unknown If Ever Smoked - CARDIAC Hx Hypertension: Yes - PULMONARY Hx Respiratory Disorders: No - NEUROLOGICAL Hx Dementia: Yes - MUSCULOSKELETAL/RHEUMATOLOGICAL Hx Arthritis: Yes - GENITOURINARY/GYNECOLOGICAL Hx Genitourinary Disorders: No - PSYCHIATRIC Hx Psychophysiologic Disorder: No Hx Substance Use: No - ANESTHESIA Hx Anesthesia: No Meds Allergies/Adverse Reactions: Allergies Allergy/AdvReac Type Severity Reaction Status Date / Time No Known Allergies Allergy Verified 08/07/17 11:33 - Medications Medications: Current Medications Acetaminophen (Tylenol 325mg Tab) 650 mg PO Q4H PRN PRN Reason: Pain, Mild (1-3) Aspirin (Aspirin Chewable) 81 mg PO DAILY [facility] Last Admin: 08/08/17 11:57 Dose: Not Given Enoxaparin Sodium (Lovenox) 30 mg SC DAILY [facility] PRN Reason: Protocol Last Admin: 08/08/17 11:57 Dose: 30 mg Hydralazine HCl (Apresoline) 10 mg IVP Q6 [facility] Last Admin: 08/08/17 11:56 Dose: 10 mg Ceftriaxone Sodium (Rocephin 1 Gram Ivpb) 1 gm in 100 mls @ 100 mls/hr IVPB DAILY [facility] PRN Reason: Protocol Last Admin: 08/08/17 11:58 Dose: 100 mls/hr Dextrose/Sodium Chloride (Dextrose 5%/0.45% Ns 1000 Ml) 1,000 mls @ 50 mls/hr IV .Q20H [facility] Lisinopril (Zestril) 10 mg PO DAILY [facility] Last Admin: 08/08/17 11:58 Dose: Not Given Pantoprazole Sodium (Protonix Inj) 40 mg IVP DAILY [facility] Last Admin: 08/08/17 11:58 Dose: 40 mg Results - Vital Signs Recent Vital Signs: Last Vital Signs Temp 98.7 F 08/08/17 10:43 Pulse 63 07/04/18 11:56 Resp 17 08/08/17 10:43 BP 208/71 H 08/08/17 11:56 Pulse Ox 99 08/08/17 10:43 - Labs Result Diagrams: 08/08/17 11:30 08/08/17 11:30 Labs: Laboratory Results - last 24 hr 08/08/17 08/08/17 08/08/17 11:30 11:30 11:41 WBC 5.3 RBC 3.73 Hgb 11.1 L Hct 33.8 L MCV 90.6 MCH 29.8 MCHC 32.8 RDW 13.3 Plt Count 189 MPV 11.5 H Gran % 63.9 Lymph % (Auto) 25.4 [place] % (Auto) 9.5 H Eos % (Auto) 0.8 L Baso % (Auto) 0.4 Gran # 3.38 Lymph # (Auto) 1.3 [place] # (Auto) 0.5 Eos # (Auto) 0.0 Baso # (Auto) 0.02 Sodium 147 Potassium 4.4 Chloride 110 H Carbon Dioxide 27 Anion Gap 15 BUN 38 H Creatinine 1.2 Est GFR ( Amer) 51 Est GFR (Non-Af Amer) 42 POC Glucose (mg/dL) 67 Random Glucose 83 Calcium 9.2 Total Bilirubin 0.8 AST 13 L D ALT 13 Alkaline Phosphatase 51 Total Protein 6.4 Albumin 3.6 Globulin 2.9 Albumin/Globulin Ratio 1.2 Triglycerides 108 Cholesterol 213 H LDL Cholesterol Direct 118 HDL Cholesterol 51
[2017-08-08 13:36] VITALS: BMI 19.5
[2017-08-08] MEDS ORDERED: Pneumococcal 23-Valent Vaccine IM ONE (13:37)
[2017-08-08] MEDS ORDERED: Vancomycin 1gm in NS 250ml 1 GM/250 ML BAG IVPB STA (13:54)
[2017-08-08] MEDS: Cefepime 1gm in NS 100ml 1 GM/100 ML BAG IVPB SCH (21:34)
--- NOTE | 2017-08-08 22:18 | CON ---
DATE: 08/08/2017 LOCATION: The patient is in bed. CHIEF COMPLAINT: Shortness of breath and change in mental status x1 day. HISTORY OF PRESENT ILLNESS: This is an 87-year-old female with hypertension, arthritis, dementia, kidney disease, admitted with change in mental status and questionable change of behavior and shortness of breath. The patient is a poor historian; however, nursing staff reports the patient has not had any fevers, any chills. There is mild shortness of breath. No chest pain. No abdominal pain, diarrhea or constipation. Had rapid response this morning on the patient. Infectious Disease consultation requested. Rapid response report is reviewed, which is written Dr. Dean Mahajan. REVIEW OF SYSTEMS: Twelve-point review of systems is performed. PAST MEDICAL HISTORY: Significant for hypertension, arthritis, dementia, kidney disease. PAST SURGICAL HISTORY: Significant for glaucoma. ALLERGIES: THE PATIENT HAS NO KNOWN ALLERGIES. MEDICATIONS: Include Norvasc, lisinopril, hydrochlorothiazide, fosinopril, dorzolamide. PHYSICAL EXAMINATION: GENERAL: The patient is in bed, appearing chronically ill, debilitated stage. VITAL SIGNS: Temperature of 96.9, heart rate of 53, respiratory rate of 17, blood pressure is 198/79. BMI is 19. HEENT: Examination of HEENT is unremarkable. There is temporal wasting. NECK: Supple. LUNGS: Have decreased breath sounds. HEART: Normal S1, S2. ABDOMEN: Soft, nontender. SKIN: No breakdown in the skin is noted. LABORATORY DATA: Laboratory examination reveals a white count of 6, hemoglobin of 10, platelets of 193. The chemistries reveals a BUN of 42, creatinine of 1.3. The patient's creatinine prior to that in 06/2017 was 1.4. Urinalysis is noted to have 10-15 wbc's, large leukocyte esterase and negative nitrites. Dr. Johnson's consultation is reviewed. CAT scan of the head is reported to be negative. ASSESSMENT AND PLAN: An 87-year-old female with hypertension, arthritis, dementia, kidney disease with probable urinary tract infection. The patient had a chest x-ray that was done yesterday, which was negative. We will treat the patient with cefepime 1 g every 12. Discontinue the ceftriaxone for resistant gram negatives and this patient was believed to be on antibiotics outpatient. We will give one dose of vancomycin pending panculture results and we will follow closely with you. Ari Wells MD [facility] # [id number]
[2017-08-09] MEDS ORDERED: DiphenhydrAMINE 50 mg/ml Inj IVP STA ×2 (03:59→22:51)
[2017-08-09 07:07] LABS: BASO # 0.02 K/mm3 (0.0-2.0); BASO % 0.3 % (0.0-3.0); EOS # 0.1 (0.0-0.7); EOS % 0.8 % (1.5-5.0); GRAN # 5.06 (1.4-6.5); GRAN % 78.8 % (50.0-68.0); LYMPH # 0.7 (1.2-3.4); LYMPH % 11.1 % (22.0-35.0); MEAN CELL VOLUME 89.9 fl (80.0-105.0); MEAN CORPUSCULAR HEMOGLOBIN 29.3 pg (25.0-35.0); MEAN CORPUSCULAR HGB CONC 32.5 g/dl (31.0-37.0); MEAN PLATELET VOLUME 11.7 fl (7.0-11.0); MONO # 0.6 (0.1-0.6); RBC 3.76 10^6/uL (3.5-6.1); RED CELL DISTRIBUTION WIDTH 13.3 % (11.5-14.5); WHITE BLOOD COUNT 6.4 10^3/ul (4.5-11.0)
[2017-08-09 07:15] LABS: IRON 34 ug/dL (45-180)
[2017-08-09 07:19] LABS: CALCIUM 9.1 mg/dL (8.4-10.5)
[2017-08-09 07:24] LABS: % IRON SATURATION 14 % (20-55); TOTAL IRON BINDING CAPACITY 239 ug/dL (265-497)
--- NOTE | 2017-08-09 07:49 | CARD ---
APPROVED REPORT EKG Measurement Heart [id number] <Conclusion> Sinus rhythm with premature supraventricular complexes Voltage criteria for left ventricular hypertrophy Abnormal ECG
--- NOTE | 2017-08-09 08:20 | CARD ---
APPROVED REPORT EKG Measurement Heart [id number] <Conclusion> Normal sinus rhythm Voltage criteria for left ventricular hypertrophy PRWP, probably lead placement No change
--- NOTE | 2017-08-09 10:26 | CP.PCM.CON ---
History of Present Illness - History of Present Illness History of Present Illness: 87 y/o female with PMHx of HTN, dementia and arthritis seen at bedside this morning for thickened elongated painful toenails. Pt is of altered mental status and cannot provide thorough HPI, however, she does state that her toenails are very long and very painful. States she is worried she will cut herself because they curl and cause pressure on her skin. Denies numbness tingling or burning in the lower extremities. Denies F/C/N/V/CP/SOB Review of Systems - Review of Systems All systems: reviewed and no additional remarkable complaints except (per HPI) Past Patient History - Infectious Disease Hx of Infectious Diseases: None - Past Social History Smoking Status: Unknown If Ever Smoked - CARDIAC Hx Hypotension: Yes - PULMONARY Hx Respiratory Disorders: No - NEUROLOGICAL Hx Dementia: Yes - HEENT Hx HEENT Problems: Yes ([place]/eyeglasses) Hx Glaucoma: Yes Other/Comment: pt had sx yrs ago for glaucoma had problems post op with right eye, pt is on eye drops - RENAL Hx Chronic Kidney Disease: No - ENDOCRINE/METABOLIC Hx Endocrine Disorders: No - HEMATOLOGICAL/ONCOLOGICAL Hx Blood Disorders: No - INTEGUMENTARY Hx Dermatological Problems: Yes Other/Comment: bilateral feet have long hard curled thick toenails, left foot 2nd tow small 0.3 round callous and hammertoe, right foot 2nd and 3rd toes hammertoes, 5th toe is overlaping 4th toe, dry skin and foul smell to both feet , fingernails long to both hands - MUSCULOSKELETAL/RHEUMATOLOGICAL Hx Falls: No - GASTROINTESTINAL Hx Gastrointestinal Disorders: Yes (poor appetite weight loss) - GENITOURINARY/GYNECOLOGICAL Hx Genitourinary Disorders: No - PSYCHIATRIC Hx Psychophysiologic Disorder: No Hx Substance Use: No - SURGICAL HISTORY Hx Surgeries: Yes (sx for glaucoma) - ANESTHESIA Hx Anesthesia: No Meds Allergies/Adverse Reactions: Allergies Allergy/AdvReac Type Severity Reaction Status Date / Time No Known Allergies Allergy Verified 08/07/17 11:33 - Medications Medications: Current Medications Acetaminophen (Tylenol 325mg Tab) 650 mg PO Q4H PRN PRN Reason: Pain, Mild (1-3) Aspirin (Aspirin Chewable) 81 mg PO DAILY [facility] Last Admin: 08/08/17 11:57 Dose: Not Given Enoxaparin Sodium (Lovenox) 30 mg SC DAILY [facility] PRN Reason: Protocol Last Admin: 08/08/17 11:57 Dose: 30 mg Hydralazine HCl (Apresoline) 10 mg IVP Q6 PRN PRN Reason: Other Dextrose/Sodium Chloride (Dextrose 5%/0.45% Ns 1000 Ml) 1,000 mls @ 50 mls/hr IV .Q20H [facility] Last Admin: 08/08/17 12:40 Dose: 50 mls/hr Cefepime HCl (Maxipime 1gm) 1 gm in 100 mls @ 100 mls/hr IVPB Q12 [facility] PRN Reason: Protocol Stop: 08/16/17 22:01 Last Admin: 08/08/17 21:34 Dose: 100 mls/hr Lisinopril (Zestril) 20 mg PO QPM [facility] Last Admin: 08/08/17 18:26 Dose: 20 mg Pantoprazole Sodium (Protonix Inj) 40 mg IVP DAILY [facility] Last Admin: 08/08/17 11:58 Dose: 40 mg Physical Exam - Constitutional Appears: Well, Non-toxic, No Acute Distress - Extremities Exam Additional comments: Lower extremity focused exam: Vasc: DP/PT pulses palpable 1/4 B/L. Diffuse varicosities noted to bilateral feet and ankles. CFT < 3 sec to all digits. No pedal edema Derm: Thickened elongated dystrophic toenails x10 with subungual debris. No open wounds, no erythema, no ecchymosis Neuro: Protective sensation grossly intact Ortho: Tenderness to palpation of thickened elongated toenails x10 - Neurological Exam Neurological exam: Alert, Oriented x3 - Psychiatric Exam Psychiatric exam: Normal Affect, Normal Mood Results - Vital Signs Recent Vital Signs: Last Vital Signs Temp 98.4 F 08/08/17 17:45 Pulse 65 08/09/17 05:57 Resp 20 08/08/17 23:52 BP 154/61 H 08/08/17 23:52 Pulse Ox 96 08/08/17 23:52 - Labs Result Diagrams: 08/09/17 06:40 08/09/17 06:40 Labs: Laboratory Results - last 24 hr 08/08/17 08/08/17 08/08/17 11:30 11:30 11:30 WBC 5.3 RBC 3.73 Hgb 11.1 L Hct 33.8 L MCV 90.6 MCH 29.8 MCHC 32.8 RDW 13.3 Plt Count 189 MPV 11.5 H Gran % 63.9 Lymph % (Auto) 25.4 Bates % (Auto) 9.5 H Eos % (Auto) 0.8 L Baso % (Auto) 0.4 Gran # 3.38 Lymph # (Auto) 1.3 Bates # (Auto) 0.5 Eos # (Auto) 0.0 Baso # (Auto) 0.02 Sodium 147 Potassium 4.4 Chloride 110 H Carbon Dioxide 27 Anion Gap 15 BUN 38 H Creatinine 1.2 Est GFR ( Amer) 51 Est GFR (Non-Af Amer) 42 POC Glucose (mg/dL) Random Glucose 83 Calcium 9.2 Iron TIBC % Saturation Total Bilirubin 0.8 AST 13 L D ALT 13 Alkaline Phosphatase 51 Total Protein 6.4 Albumin 3.6 Globulin 2.9 Albumin/Globulin Ratio 1.2 Triglycerides 108 Cholesterol 213 H LDL Cholesterol Direct 118 HDL Cholesterol 51 TSH 3rd Generation 2.17 08/08/17 08/08/17 08/09/17 11:41 21:45 06:40 WBC RBC Hgb Hct MCV MCH MCHC RDW Plt Count MPV Gran % Lymph % (Auto) Bates % (Auto) Eos % (Auto) Baso % (Auto) Gran # Lymph # (Auto) Bates # (Auto) Eos # (Auto) Baso # (Auto) Sodium Potassium Chloride Carbon Dioxide Anion Gap BUN Creatinine Est GFR ( Amer) Est GFR (Non-Af Amer) POC Glucose (mg/dL) 67 91 Random Glucose Calcium Iron 34 L TIBC 239 L % Saturation 14 L Total Bilirubin AST ALT Alkaline Phosphatase Total Protein Albumin Globulin Albumin/Globulin Ratio Triglycerides Cholesterol LDL Cholesterol Direct HDL Cholesterol TSH 3rd Generation 08/09/17 08/09/17 06:40 06:40 WBC 6.4 D RBC 3.76 Hgb 11.0 L Hct 33.8 L MCV 89.9 MCH 29.3 MCHC 32.5 RDW 13.3 Plt Count 207 MPV 11.7 H Gran % 78.8 H Lymph % (Auto) 11.1 L Bates % (Auto) 9.0 H Eos % (Auto) 0.8 L Baso % (Auto) 0.3 Gran # 5.06 Lymph # (Auto) 0.7 L Bates # (Auto) 0.6 Eos # (Auto) 0.1 Baso # (Auto) 0.02 Sodium 146 Potassium 3.9 Chloride 110 H Carbon Dioxide 27 Anion Gap 13 BUN 34 H Creatinine 1.2 Est GFR ( Amer) 51 Est GFR (Non-Af Amer) 42 POC Glucose (mg/dL) Random Glucose 108 Calcium 9.1 Iron TIBC % Saturation Total Bilirubin AST ALT Alkaline Phosphatase Total Protein Albumin Globulin Albumin/Globulin Ratio Triglycerides Cholesterol LDL Cholesterol Direct HDL Cholesterol TSH 3rd Generation Assessment & Plan - Assessment and Plan (Free Text) Assessment: 87 y/o female with painful tinea unguium x 10 Plan: Pt seen and evaluated at bedside Discussed with attending Dr. Olsen Aseptic debridement of nails x 10 with sterile nippers and curette Pt tolerated procedure without incident Podiatry to sign off at this time Thank you for consulting us
--- NOTE | 2017-08-09 10:44 | RAD ---
HISTORY: COMPARISON: 08/07/2017. TECHNIQUE: Chest PA and lateral FINDINGS: LINES AND TUBES: None. LUNG AND PLEURA: The lungs are well inflated and clear. No pleural effusion or pneumothorax. HEART AND MEDIASTINUM: The heart is not enlarged. Atherosclerotic aortic arch calcifications are present. The hilar and mediastinal contours are within normal limits. SKELETAL STRUCTURES: The bony structures are within normal limits for the patient's age. VISUALIZED UPPER ABDOMEN: Normal. OTHER FINDINGS: There is stable chronic elevation of the right hemidiaphragm. IMPRESSION: No active pulmonary disease.
--- NOTE | 2017-08-09 10:46 | US ---
PROCEDURE: Ultrasound of the Kidneys HISTORY: HTN COMPARISON: None available. TECHNIQUE: Grayscale imaging was performed. FINDINGS: RIGHT KIDNEY: Measures: 8.1 cm. Small in size with diffuse increased echogenicity. No stone, solid mass lesion or hydronephrosis visualized. LEFT KIDNEY: Measures: 8.7 cm. Normal in size with diffuse increased echogenicity. No stone, solid mass lesion or hydronephrosis visualized. There is a 1.2 x 1.1 x 1.1 cm simple cyst in the upper pole medially OTHER FINDINGS: None. IMPRESSION: Atrophic right kidney. Chronic renal parenchymal disease.
[2017-08-09] MEDS: Enoxaparin 30 mg Syringe SC SCH (11:50)
[2017-08-09] MEDS: Cefepime 1gm in NS 100ml 1 GM/100 ML BAG IVPB SCH ×2 (11:50→21:56)
--- NOTE | 2017-08-09 13:31 | CP.PCM.PN ---
Subjective - Date & Time of Evaluation Date of Evaluation: 08/09/17 Time of Evaluation: 13:26 - Subjective Subjective: Nephrology Consultation Note: Assessment: stable Altered mental status with likely UTI and some contribution by HTN urgency: improved Baseline dementia CKD stage 3 HTN (I12.9) Anemia Hypernatremia sinus bradycardia Plan No acute need for renal replacement therapy at this time. renal funtion stable Hypertension control with meds as ordered. increased ACEi dose as 20 mg/day stop IVF as pt eating better started iron supplements MVI and weekly Vit D Dose meds/antibiotics for reduced GFR. Avoid fleets enema. Avoid nephrotoxins/ NSAIDs/ iodinated contrast (unless needed emergently) Glycemic control, Further work up for as per primary team. Thanks for allowing me to participate in care of your patient. Will follow with you. Please call if any Qs. had d/w team Dr Eliseo Johnson Office: [phone] reason for consult: HTN and CKD HPI: Pt is a 87 y/o F with hx of HTN, CKD stage 3 with baseline serum cr 1.4, dementia, osteoarthritis came with behavioral changes. she had [employer] today for AMS , BP at that time increased to 200 range renal consult for CKD and HTN management. pt unable to provide any hx ROS: she denies SOB/chest pain/nausea/vomitting. alert awake and communicative today Physical Examination: General Appearance: Comfortable, in no acute respiratory distress, co- operative. thin built elderly female and appears malnourished Vitals reviewed and noted as below Head; Atraumatic, normocephalic ENT: no ulcers no thrush. Tongue is midline/moist. Oropharynx: no rash or ulcers. EYES: Pupils are equal, round and reactive to light accommodation. Eye muscles and extraocular movement intact. Sclera is anicteric. Neck; supple no lymphadenopathy, no thyromegaly or bruit Lungs: Normal respiratory rate/effort. Breath sounds appears decreased at bases but poor inspiratory efforts Heart: Normal rate. s1s2 normal. No rub or gallop. Extremities: trace edema. No varicose veins Neurological: Patient is alert, awake, oriented x 2 but has dementia. follows commands Skin: dry and warm. Normal turgor. No rash. Palpitation: Normal elasticity for age Abdomen: Abdomen is soft non tender no apparent organomegaly Psych: lack insight. has normal affect and mood MSK: no specific joint tenderness or swelling. Digits and nails normal, no deformity : kidney or bladder not palpable. Labs/imaging/EKG reviewed. Past medical history, past surgical history, social history, allergy reviewed and noted as below Family hx; unable to obtain Work up: UA with large LE CXR normal Objective - Vital Signs/Intake and Output Vital Signs (last 24 hours): Temp Pulse Resp BP Pulse Ox 98.4 F 65 20 154/61 H 96 08/08/17 17:45 08/09/17 05:57 08/08/17 23:52 08/08/17 23:52 08/08/17 23:52 Intake and Output: 08/09/17 08/09/17 06:59 18:59 Intake Total 920 Output Total 400 Balance 520 - Medications Medications: Current Medications Acetaminophen (Tylenol 325mg Tab) 650 mg PO Q4H PRN PRN Reason: Pain, Mild (1-3) Aspirin (Aspirin Chewable) 81 mg PO DAILY [facility] Last Admin: 08/09/17 11:50 Dose: 81 mg Donepezil HCl (Aricept) 10 mg PO HS [facility] Enoxaparin Sodium (Lovenox) 30 mg SC DAILY [facility] PRN Reason: Protocol Last Admin: 08/09/17 11:50 Dose: 30 mg Hydralazine HCl (Apresoline) 10 mg IVP Q6 PRN PRN Reason: Other Cefepime HCl (Maxipime 1gm) 1 gm in 100 mls @ 100 mls/hr IVPB Q12 [facility] PRN Reason: Protocol Stop: 08/16/17 22:01 Last Admin: 08/09/17 11:50 Dose: 100 mls/hr Lisinopril (Zestril) 20 mg PO QPM [facility] Last Admin: 08/08/17 18:26 Dose: 20 mg Pantoprazole Sodium (Protonix Inj) 40 mg IVP DAILY [facility] Last Admin: 08/09/17 11:50 Dose: 40 mg - Labs Labs: 08/09/17 06:40 08/09/17 06:40
[2017-08-09] MEDS: Ergocalciferol 50,000 Intl Units Cap PO SCH (14:27)
--- NOTE | 2017-08-09 15:26 | CON ---
DATE: 08/09/2017 HISTORY OF PRESENT ILLNESS: This is an 87-year-old female with past medical history of hypertension, arthritis, dementia, who came to the hospital with a change in the mental status, shortness of breath. She is a very poor historian and she came to the hospital because she was not feeling well. PAST MEDICAL HISTORY: Hypertension, arthritis, dementia. PAST SURGICAL HISTORY: Significant for glaucoma. ALLERGY: NO KNOWN DRUG ALLERGY. PHYSICAL EXAMINATION: VITAL SIGNS: Blood pressure 198/79. HEENT: Normocephalic, atraumatic. NEUROLOGIC: Cranial nerves II through XII were tested. Pupils reactive. Spontaneous movement of the extremities noted. Deep tendon reflexes 1+. Both plantars downgoing. Sensory appears intact. Cerebellar gait deferred. IMPRESSION: An 87-year-old female with past medical history of hypertension, arthritis, dementia. Came to the hospital with altered mental status. CAT scan of the head was done, which was reported negative. Continue present management. We will add Aricept 10 mg p.o. daily. Malcolm Brock MD
--- NOTE | 2017-08-09 18:12 | CON ---
HISTORY OF PRESENT ILLNESS: Shortly, the patient is an 87-year-old female with a reported history of dementia and arthritis. The patient was brought in by police for evaluation of bizarre and agitated behavior. The patient was discharged from the hospital earlier and was confused in the community. The patient was admitted on the medical site for evaluation of possible urinary tract infection as well as delirium and dementia. Psych consult was called for the same reason for altered mental status, bizarre and at times agitated behavior. The patient was seen and examined. The patient presented to be alert, eating during the interview. The patient does not know where she is. The patient said that she came here to eat. The patient said that she has a niece but she does not remember the niece's name or phone number. There is no option to have meaningful conversation because the patient was concentrating on eating and not interested to talk to this commercial lines underwriter, no eye contact. This commercial lines underwriter reviewed past history. The patient has never been evaluated by psychiatrist here in [place], has never been evaluated by psychiatrist. PHYSICAL EXAMINATION: VITAL SIGNS: Reviewed. Pulse is 65, blood pressure 154/61, respiration 20, oxygen saturation is 96. MEDICATIONS: Reviewed. Tylenol, aspirin, cefepime, dextrose, Lovenox, hydralazine, lisinopril, Protonix. LABORATORY DATA: Reviewed. Hemoglobin and hematocrit 11 and 33.8 respectively. Coagulation reviewed. Chemistry reviewed. Urinalysis showed leukocyte esterase, large. Toxicology negative for any substances. Microbiology . MENTAL STATUS EXAMINATION: As this commercial lines underwriter described above. The patient does not know where she is. She said, "I am here to eat". The patient does not know what is the date today. The patient knows her name and address where she lives. No eye contact. Mood described as okay. Affect was constricted. At times, the patient smiles inappropriately and mumbles something. Thought process seems to be disorganized. Thought content, the patient appears to be confused, was not able to process information about hallucinations or delusions. Insight and judgment seems to be impaired. Impulses are unpredictable. As per collateral information from the nursing staff, the patient has episodes of confusion. The patient did not sleep well last night. The patient presented to be confused. The patient got Ativan as well as Benadryl and rapid response was called for that reason. IMPRESSION: Most likely delirium on dementia. PLAN: We would not recommend any Benadryl or Ativan at this point. We will give very small dose of Seroquel at the nighttime in order to clear sensorium as well as give a good night sleep. Meanwhile, social media manager need to be involved and find out if the patient has power of state attorney. Family needs to be contacted. I hope that the patient's presentation improved and hopefully she will point someone to be her power of state attorney. If it is not the case, guardianship needs to be started, but at the same time, the patient is in delirium stage. This commercial lines underwriter cannot exclude that the patient will be able to make decisions if she will improve. As of now, she lacks capacity to do so. Thank you very much for letting me participate in care of your patient. Should you have any questions, give me a call back. Thank you very much. Milvia Romero MD
--- NOTE | 2017-08-09 19:19 | HP ---
An 87-year-old female, brought in emergency room because of change in mental status. HISTORY OF PRESENT ILLNESS: An 87-year-old female apparently has a history of hypertension. with the nurse taking care of her at home, was earlier brought to the ER for possible psych issues; however, she was discharged home again. However, the patient has strange behavior, some sort of anxiety and problem in housing with people over there and was brought in back to the emergency room with change in mental status. She was agitated and behaved in a different way. Patient was advised to be admitted for observations. At that time, she does not seem to be in any respiratory distress, does not seem to be having any pain. She moves all upper and lower extremities. Patient is in emergency room because of the behavior she has. She was given Ativan x1 dose. Patient was lethargic after that and was admitted to the hospital for observations on IV fluid and remote tele. PAST MEDICAL HISTORY: Apparently, she does have hypertension. She does have glaucoma. There is no other history noted. No history of psych medications. ALLERGIES: NO KNOWN ALLERGIES. FAMILY HISTORY: Cannot be obtained. REVIEW OF SYSTEMS: Could not be obtained. The patient has been on Ativan, is arousable. She opens her eyes. She moves all extremities, but cannot give much history. PHYSICAL EXAMINATION: VITAL SIGNS: On 08/08/2017, temperature 98.4, heart rate 61, blood pressure is 208/71, respirations 60, saturating 100% on room air. HEAD AND NECK: Normal. No JVD. No thyromegaly. CHEST: Bilaterally clear. CARDIAC: First sound and second sound normal. No murmur, rub or gallop. ABDOMEN: Soft, nontender. EXTREMITIES: No edema. NEUROLOGICAL: Patient was lethargic, but when calling her name, touching her skin, she responds to mild painful stimuli, opens her eyes and responds with facial expression yes and no. She does not have any pain and she has no complaint. Patient went back to sleep and she was comfortable. LABORATORY DATA: Her laboratory on 08/08/2017, white count 5.3, hemoglobin 11.1, hematocrit 33.8, platelets 189. Chemistry noted for sodium 147, potassium 4.4, chloride 110, bicarb 27, BUN 38, creatinine 1.2. Liver function test seems normal, calcium 9.2 normal, glucose 83. Patient has a urine test, which shows 10-15 white blood cells, large urine leukocyte esterase and the patient's CT of the head shows no bleeding. She had an EKG with sinus rhythm, sinus bradycardia. IMPRESSION AND PLAN: 1. An 87-year-old female with change in mental status with agitation, received Ativan, seems lethargic, Rapid responses calling for her, but she seems responding well to mild painful and touch stimuli. She responds to her name. She answered some questions, probably medication-related, lethargy. We will observe and Neuro consultation, Dr. Josh Brock, Psych consultation Dr. Milvia Romero to find out etiology of her agitation and addressing the issue of home with a social services coordinator. 2. Dehydration, could be prerenal. We will give IV fluid D5 half normal saline. We will continue that. The patient noted according to the nurse, her sugar was low in the below 60 and D5 half normal saline seems doing well and helping her. 3. Hypertension, out of control. Patient cannot take p.o. medicine. We will give hydralazine IV and we will follow up with the patient's condition and the supervisor throwing department for blood pressure management. Once the patient gets better, we will reevaluate her and we will find out the reason for her problems. We will follow up with the cancer program consultant, bradycardia. We will get Dr. Fisher to see her, also patient has glaucoma, we would resume eye drops to her. Patient also has long toe nails noted on exam and Dr. Adan Reyes was called in. Continue current therapy. 4. Urinary tract infection, ID consult. Patient started on meropenem. Continue current therapy, Tylenol, resume lisinopril in the morning. CURRENT MEDICATIONS: The patient is on IV fluid, D5 half normal saline, baby aspirin 81 mg, Lovenox 30 mg subcu daily. Patient also having hydralazine p.r.n., Ativan was given once 0.5 mg and Haldol p.r.n. in the emergency room. Jered Jacobsen MD [facility] # [id number]
--- NOTE | 2017-08-09 20:28 | PN ---
DATE: 08/09/2017 SUBJECTIVE: The patient is in bed. The patient was seen early this morning in room 377, bed 1. No fevers, no chills. Uneventful night. PHYSICAL EXAMINATION: VITAL SIGNS: Temperature is 98, blood pressure is 130/80, respiratory rate 16. HEENT: Unremarkable. NECK: Supple. LUNGS: Have decreased breath sounds. HEART: Normal S1, S2. ABDOMEN: Soft. LABORATORY EMANATION: Reveals a white count of 6.4, hemoglobin of 11, platelets of 207. Chemistries are noted. BUN of 34, creatinine of 1.2 and urinalysis is noted and microbiology reveals the blood cultures are negative. Urine cultures are negative. Chest x-ray is no active disease. ASSESSMENT AND PLAN: An 87-year-old female with hypertension, arthritis, dementia, kidney disease, change in mental status, questionable change of behavior and currently with history of kidney disease and probable urinary tract infection. Currently on cefepime. Thus far, the urine and blood cultures are negative and normal white count. We will check on final culture results and make further recommendations. Dr. Johnson's note is reviewed. We will follow closely with you. Ari Wells MD
[2017-08-09] MEDS: Dextrose 5%/0.45% NS 1,000 ML IV SCH (22:46)
[2017-08-10 06:40] LABS: TOTAL PROTEIN,RANDOM URINE 13 mg/L
--- NOTE | 2017-08-10 08:19 | CON ---
DATE: 08/09/2017 REASON FOR THE CONSULTATION: Cardiac evaluation for bradycardia. BRIEF CLINICAL HISTORY: This is an 87-year-old female admitted for possible UTI, altered mental status, possibly secondary to dementia. Patient was in telemetry found to be bradycardic. Cardiology consult was called. Patient denies any chest pain, denies any shortness of breath, denies any palpitation. PAST MEDICAL HISTORY: Significant for hypertension, hyperlipidemia. SOCIAL HISTORY: Denies any history of smoke, denies any history of alcohol abuse. The patient limited, unable to get more history. The history was significant for dementia, hypertension, arthritis, history of CKD in the past. CURRENT MEDICATIONS: Patient at home, was taking amlodipine, lisinopril, hydrochlorothiazide, Lumigan eye drop. ALLERGIES: NO KNOWN DRUG ALLERGIES. REVIEW OF SYSTEMS: As per HPI. PHYSICAL EXAMINATION: GENERAL: Height of the patient 4 feet 5 inches, weight of the patient 79 pounds, body mass index 92.9 kg/m2. VITAL SIGNS: Temperature afebrile, heart rate 49, then 65, blood pressure 150/61. HEENT: PERRLA. Extraocular muscles intact. NECK: Supple. No carotid bruits or thyromegaly. CHEST: Clear to auscultation. HEART: S1 and S2, regular. ABDOMEN: Soft. EXTREMITIES: Clubbing and cyanosis negative. DIAGNOSTIC DATA: EKG shows normal sinus, rate of 66 with APCs. Telemetry strip shows rate of 65. LABORATORY DATA: Blood workup as follows. WBC 6.4, hemoglobin 11, hematocrit 33.8, platelet count 207. Chemistry shows sodium 140, potassium 3.9, chloride 110, carbon dioxide 27, anion gap of 13, BUN 34, creatinine 1.2. IMPRESSION: An 87-year-old female with past medical history significant for hypertension, arthritis, chronic kidney disease, creatinine clearance 40-60 with medical history of dementia, admitted with possible urinary tract infection and found to be bradycardic in telemetry. Initial admitting echocardiogram with normal sinus. RECOMMENDATION: We will get the TSH, lipid profile, hemoglobin A1c. We will get echo to rule out any monitored in telemetry. Further recommendations depending on the hospital course. We may get Holter monitor to assess whether the patient needs pacemaker. Thank you, , for providing us the opportunity in taking care of the patient Brittani Lorenzana. Jose Mckeon MD cc: Dr. Charles
[2017-08-10] MEDS: Enoxaparin 30 mg Syringe SC SCH (09:54)
[2017-08-10] MEDS: Cefepime 1gm in NS 100ml 1 GM/100 ML BAG IVPB SCH (09:54)
[2017-08-10] MEDS: Multivitamin Vitamin B Complex (Nephro-Vite) Tab PO SCH (09:55)
--- NOTE | 2017-08-10 13:22 | PN ---
DATE: 08/10/2017 REASON FOR CONSULTATION AND FOLLOWUP: Cardiac evaluation for bradycardia. SUBJECTIVE: The patient denies any chest pain, shortness of breath or any palpitation. Wearing Holter monitor, is on one-to-one. OBJECTIVE: GENERAL: Not in apparent distress. VITAL SIGNS: As follows: Temperature afebrile, heart rate 61, blood pressure 152/68. HEENT: PERRLA. Extraocular muscles intact. NECK: Supple. No carotid bruit or thyromegaly. CHEST: Clear to auscultation. HEART: S1 and S2, regular. ABDOMEN: Soft. EXTREMITIES: Clubbing and cyanosis negative. LABORATORY DATA: Blood workup as follows: WBC 6.4, hemoglobin 11, hematocrit 33.8, platelet count 207. Chemistry shows sodium 143, potassium 3.9, chloride 110, carbon dioxide 27, anion gap of 13, BUN 34, creatinine 1.2. TSH 2.17. IMPRESSION: An 87-year-old female with past medical history significant for dementia advanced, hypertension, arthritis, chronic kidney disease, creatinine clearance 40 to 60 mL, admitted with possible urinary tract infection, found to be bradycardic. Initial EKG was within normal limit. Normal sinus. RECOMMENDATION: Holter is in progress. Continue Holter. Avoid beta-luís. Avoid rate limiting calcium-channel luís. The patient's heart rate subsequently improved. No further episode of bradyarrhythmia noted. This bradycardia could be secondary to eye drop. The patient is on timolol maleate eye drop. It is causing potentially bradycardia. We will follow the Holter. We will follow with you. Thank you, Dr. Jacobsen, for providing us the opportunity in taking care of the patient, Brittani Lorenzana. Jose Mckeon MD cc: Jered Jacobsen MD
--- NOTE | 2017-08-10 13:42 | PN ---
DATE: 08/10/2017 FOLLOWUP NOTE SUBJECTIVE: Shortly, the patient is an 87-year-old female with reported history of dementia. The patient was brought in for evaluation of altered mental status and the patient was living independently. Psych consult was involved because of hallucinations as well as change in mental status. This account underwriter evaluated the patient initially yesterday. Please see consultation note for more detailed information. The patient was followed up today. The patient presented to be calm and cooperative. The patient was confabulating during the interview. The patient reported that she came to the hospital because she was feeling lonely. More over, the patient does not know that she is in the hospital now. As per social work evaluation, the patient lives independently. The patient has one niece, but before the patient was refusing to point her to be a power of deputy attorney general. The patient was seen today at the morning time. The patient presented to be alert, but does not know where she is, does not know what is the date today, does not remember this account underwriter. The patient reported that she feels fine. Affect was reactive. The patient was pleasant during the interview. Mood described as okay. Thought process seems to be disorganized. Thought content: The patient confabulates most of the time, but denies being depressed. Denied thoughts of killing herself or others. Denies intent or plan. Insight and judgment seem to be impaired. Impulses are unpredictable. IMPRESSION: Delirium on dementia. PLAN: Seroquel was started at the nighttime, 12.5 mg as scheduled. This account underwriter tried to educate the patient about treatment plan, but the patient was not able to understand. The patient denied any thoughts of killing herself or others. The patient is on one-to-one observation. Physical therapy also need to be involved. Try to work with the family and if the patient is willing to point her niece to be power of deputy attorney general, it will be beneficial in the future. Dr. Brock will follow up on this patient over the weekend. Thank you very much for letting me participate in care of your patient. Should you have any questions, give me a call back. Milvia Romero MD [facility] # [id number]
--- NOTE | 2017-08-10 14:48 | PN ---
DATE: 08/09/2017 SUBJECTIVE: This 87-year-old female patient seem to be more comfortable, more awake and alert, in no respiratory distress, no other complaints. The patient seen by psychiatrist and other consultants. PHYSICAL EXAMINATION: GENERAL: The patient is comfortable, in no distress. VITAL SIGNS: Temperature is 98, heart rate 61, blood pressure 139/83, respirations 18, and satting 100%. HEAD AND NECK: Normal. No JVD. No thyromegaly. CHEST: Clear bilaterally. CARDIAC: First sound and second sound normal. No murmur, rub or gallop. ABDOMEN: Soft, nontender. EXTREMITIES: No edema. NEUROLOGICAL: Moves all extremities. She is alert and awake. LABORATORY DATA: 08/09/2017, white count 6.4, hemoglobin 11, hematocrit 33.8, platelets 207. Chemistry shows sodium 146, potassium 3.9, chloride 110, bicarb 27, BUN 34, creatinine 1.2. Liver function test is normal. Iron saturation shows low iron and vitamin D 20.4, which is low. The patient also had urinary tract infection and urine drug screen was negative. Then, we have also Microbiology which reveals blood culture negative, urine culture negative. IMPRESSION AND PLAN: 1. This is 87-year-old female who does seem to live by herself. She may have relatives, her [id number], but she seems lonely, seems mildly depressed and have problems breathing and she suffers more physiological than physical problems. The patient will need more placement and more psychological treatments. I saw Dr. Steel, put her on Seroquel which may help her sleep and . We will continue followup with her psychiatrist for that problem. 2. Hypertension, resume home medications, blood pressure runs okay. 3. May be osteoarthritis; back pain, knee pain; seems okay, does not require any medicine, Tylenol p.r.n. for pain. Continue current therapy. Repeat labs. Follow up clinically. Jered Jacobsen MD
--- NOTE | 2017-08-10 14:51 | CP.PCM.PN ---
Subjective - Date & Time of Evaluation Date of Evaluation: 08/10/17 Time of Evaluation: 14:50 - Subjective Subjective: Nephrology Consultation Note: Assessment: stable Altered mental status with likely UTI and some contribution by HTN urgency: improved Baseline dementia CKD stage 3 without proteinuria likely due to Age related decline and HTN nephrosclerosis HTN (I12.9) Anemia Hypernatremia sinus bradycardia Plan No acute need for renal replacement therapy at this time. renal funtion stable Hypertension control with meds as ordered. increased ACEi dose as 20 mg/day, can uptitrate further if needed. target BP <150/90 mmHg started iron supplements MVI and weekly Vit D Dose meds/antibiotics for reduced GFR. Avoid fleets enema. Avoid nephrotoxins/ NSAIDs/ iodinated contrast (unless needed emergently) Glycemic control, Further work up for as per primary team. Thanks for allowing me to participate in care of your patient. Will follow with you. Please call if any Qs. had d/w team Dr Eliseo Johnson Office: [phone] reason for consult: HTN and CKD HPI: Pt is a 87 y/o F with hx of HTN, CKD stage 3 with baseline serum cr 1.4, dementia, osteoarthritis came with behavioral changes. she had SURGICAL NURSE PRACTITIONER today for AMS , BP at that time increased to 200 range renal consult for CKD and HTN management. pt unable to provide any hx ROS: she denies SOB/chest pain/nausea/vomitting. alert awake and communicative today Physical Examination: General Appearance: Comfortable, in no acute respiratory distress, co- operative. thin built elderly female and appears malnourished Vitals reviewed and noted as below Head; Atraumatic, normocephalic ENT: no ulcers no thrush. Tongue is midline/moist. Oropharynx: no rash or ulcers. EYES: Pupils are equal, round and reactive to light accommodation. Eye muscles and extraocular movement intact. Sclera is anicteric. Neck; supple no lymphadenopathy, no thyromegaly or bruit Lungs: Normal respiratory rate/effort. Breath sounds appears decreased at bases but poor inspiratory efforts Heart: Normal rate. s1s2 normal. No rub or gallop. Extremities: trace edema. No varicose veins Neurological: Patient is alert, awake, oriented x 2 but has dementia. follows commands Skin: dry and warm. Normal turgor. No rash. Palpitation: Normal elasticity for age Abdomen: Abdomen is soft non tender no apparent organomegaly Psych: lack insight. has normal affect and mood MSK: no specific joint tenderness or swelling. Digits and nails normal, no deformity : kidney or bladder not palpable. Labs/imaging/EKG reviewed. Past medical history, past surgical history, social history, allergy reviewed and noted as below Family hx; unable to obtain Work up: UA with large LE CXR normal Objective - Vital Signs/Intake and Output Vital Signs (last 24 hours): Temp Pulse Resp BP Pulse Ox 96.4 F L 61 18 152/68 H 98 08/10/17 08:39 08/10/17 08:39 08/10/17 08:39 08/10/17 08:39 08/10/17 08:39 - Medications Medications: Current Medications Acetaminophen (Tylenol 325mg Tab) 650 mg PO Q4H PRN PRN Reason: Pain, Mild (1-3) Aspirin (Aspirin Chewable) 81 mg PO DAILY [facility] Last Admin: 08/10/17 09:54 Dose: 81 mg Donepezil HCl (Aricept) 10 mg PO HS [facility] Last Admin: 08/09/17 21:56 Dose: 10 mg Enoxaparin Sodium (Lovenox) 30 mg SC DAILY [facility] PRN Reason: Protocol Last Admin: 08/10/17 09:54 Dose: 30 mg Ergocalciferol (Drisdol 50,000 Intl Units Cap) 1 cap PO Q7D [facility] Last Admin: 08/09/17 14:27 Dose: 1 cap Ferrous Gluconate (Fergon) 324 mg PO TID [facility] Last Admin: 08/10/17 14:06 Dose: Not Given Hydralazine HCl (Apresoline) 10 mg IVP Q6 PRN PRN Reason: Other Cefepime HCl (Maxipime 1gm) 1 gm in 100 mls @ 100 mls/hr IVPB Q12 [facility] PRN Reason: Protocol Stop: 08/16/17 22:01 Last Admin: 08/10/17 09:54 Dose: 100 mls/hr Lisinopril (Zestril) 20 mg PO QPM [facility] Last Admin: 08/09/17 17:36 Dose: 20 mg Pantoprazole Sodium (Protonix Ec Tab) 40 mg PO ACB [facility] Quetiapine Fumarate (Seroquel) 12.5 mg PO HS [facility] PRN Reason: Protocol Vitamin B Complex/Vit C/Folic Acid (Nephro-Aspen) 1 tab PO 0800 [facility] Last Admin: 08/10/17 09:55 Dose: 1 tab
--- NOTE | 2017-08-10 17:35 | CARD ---
APPROVED REPORT EXAM: Two-dimensional and M-mode echocardiogram with Doppler and color Doppler. INDICATION BRADYCARDIA 2D DIMENSIONS Left Atrium (2D)4.8 (1.6-4.0cm)IVSd0.8 (0.7-1.1cm) LVDd4.4 (3.9-5.9cm)PWd1.1 (0.7-1.1cm) LVDs2.5 (2.5-4.0cm)FS (%) 43.5 % LVEF (%)74.9 (>50%) M-Mode DIMENSIONS Aortic Root2.50 (2.2-3.7cm)Aortic Cusp Exc.1.40 (1.5-2.0cm) Aortic Valve AoV Peak Ydwvszdj909.0cm/Compa Peak GR.11mmHgAI P 1/2 Trim105tp Mitral Valve MV E Tgvfdkau48.4cm/sMV A Prvmpgtb098.0cm/sE/A ratio0.8 TDI Lateral E' Peak V7.31cm/sMedial E' Peak V5.65cm/sE/Lateral E'11.1 E/Medial E'14.4 Pulmonary Valve PV Peak Ibgnakdq60.2cm/sPV Peak Grad.3mmHg Tricuspid Valve TR Peak Ftdpkphm658ad/sRAP AEIWDMMP26csPbJT Peak Gr.40mmHg ZONA61anMn LEFT VENTRICLE The left ventricle is normal size. There is normal left ventricular wall thickness. Proximal septal thickening is noted. The left ventricular function is normal.EF-65-70% There is normal LV segmental wall motion. Transmitral Doppler flow pattern is Grade III-reversible restrictive diastolic dysfunction. No left ventricle thrombus noted on this study. There is no ventricular septal defect visualized. There is no left ventricular aneurysm. There is no mass noted in the left ventricle. RIGHT VENTRICLE The right ventricle is normal size. There is normal right ventricular wall thickness. The right ventricular systolic function is normal. ATRIA The left atrium is mildly dilated. The right atrium is mildly dilated. The interatrial septum is intact with no evidence for an atrial septal defect. AORTIC VALVE The aortic valve is thickened but opens well. The aortic valve is calcified but opens well. There is mild to moderate aortic regurgitation. There is no aortic valvular stenosis. There is no aortic valvular vegetation. MITRAL VALVE The mitral valve is thickened but opens well. Mitral regurgitation is moderate to severe. There is no mitral valve stenosis. The mitral valve leaflets are thickened and redundant consistent with mitral valve prolapse.(posterior leaflet) TRICUSPID VALVE The tricuspid valve leaflets are thickened , but open well. There is moderate tricuspid regurgitation.RVSP-50 mmof hg. There is no tricuspid valve stenosis. There is no tricuspid valve prolapse or vegetation. PULMONIC VALVE The pulmonary valve is normal in structure. There is trace pulmonic valvular regurgitation. There is no pulmonic valvular stenosis. GREAT VESSELS The aortic root is normal in size. The ascending aorta is normal in size. The pulmonary artery is normal. The IVC is normal in size and collapses >50% with inspiration. PERICARDIAL EFFUSION There is no pleural effusion. There is no pericardial effusion. <Conclusion> The left ventricle is normal size. There is normal left ventricular wall thickness. Proximal septal thickening is noted. The left ventricular function is normal.EF-65-70% There is mild to moderate aortic regurgitation. Mitral regurgitation is moderate to severe. There is moderate tricuspid regurgitation.RVSP-50 mmof hg. The IVC is normal in size and collapses >50% with inspiration. There is no pericardial effusion.
--- NOTE | 2017-08-11 02:37 | PN ---
DATE: 08/10/2017 SUBJECTIVE: Patient is in bed, in no acute distress, nontoxic. PHYSICAL EXAMINATION: VITAL SIGNS: Temperature is 96, blood pressure is 150/60, respiratory rate 18. HEENT: Unremarkable. NECK: Supple. LUNGS: Have decreased breath sounds. HEART: Normal S1 and S2. ABDOMEN: Soft, nontender. LABORATORY DATA: Reveals a white count of 6.4, hemoglobin 11. Chemistries are noted, with BUN of 34, creatinine 1.2. Urinalysis is noted. Microbiology reveals blood cultures are negative. Review of orders reveals the patient to be on cefepime, which is on hold. Dr. Johnson's note is reviewed. ASSESSMENT AND PLAN: This is an 87-year-old female with hypertension, arthritis, dermatitis, kidney disease, change in mental status urinary tract infection, on cefepime. Patient, as of this morning, was still confused. Urine culture is negative; however, the urine culture was collected after antibiotic was given. Patient was in the emergency room. We will follow with you. Overall, prognosis is quite poor. Ari Wells MD
--- NOTE | 2017-08-11 09:27 | CP.PCM.PCO ---
Addendum Addendum: Patient was sleeping soundly at my arrival this morning. Will re-attempt interview tomorrow AM. I reviewed staff notes, there are no new issues at this time. 08/11/17 09:26
--- NOTE | 2017-08-11 10:39 | CP.PCM.PN ---
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 renal funtion stable Hypertension control with meds as ordered. increased ACEi dose as 40 mg/day target BP <150/90 mmHg. will add norvasc if neded further started iron supplements MVI and weekly Vit D Dose meds/antibiotics for reduced GFR. Avoid fleets enema. Avoid nephrotoxins/ NSAIDs/ iodinated contrast (unless needed emergently) Glycemic control, Further work up for as per primary team. Thanks for allowing me to participate in care of your patient. Will follow with you. Please call if any Qs. had d/w team Dr Eliseo Johnson Office: [phone] reason for consult: HTN and CKD HPI: Pt is a 87 y/o F with hx of HTN, CKD stage 3 with baseline serum cr 1.4, dementia, osteoarthritis came with behavioral changes. she had SPINNER FIXER today for AMS , BP at that time increased to 200 range renal consult for CKD and HTN management. pt unable to provide any hx ROS: she denies SOB/chest pain/nausea/vomitting. alert awake and communicative today Physical Examination: General Appearance: Comfortable, in no acute respiratory distress, co- operative. thin built elderly female and appears malnourished Vitals reviewed and noted as below Head; Atraumatic, normocephalic ENT: no ulcers no thrush. Tongue is midline/moist. Oropharynx: no rash or ulcers. EYES: Pupils are equal, round and reactive to light accommodation. Eye muscles and extraocular movement intact. Sclera is anicteric. Neck; supple no lymphadenopathy, no thyromegaly or bruit Lungs: Normal respiratory rate/effort. Breath sounds appears decreased at bases but poor inspiratory efforts Heart: Normal rate. s1s2 normal. No rub or gallop. Extremities: trace edema. No varicose veins Neurological: Patient is alert, awake, oriented x 2 but has dementia. follows commands Skin: dry and warm. Normal turgor. No rash. Palpitation: Normal elasticity for age Abdomen: Abdomen is soft non tender no apparent organomegaly Psych: lack insight. has normal affect and mood MSK: no specific joint tenderness or swelling. Digits and nails normal, no deformity : kidney or bladder not palpable. Labs/imaging/EKG reviewed. Past medical history, past surgical history, social history, allergy reviewed and noted as below Family hx; unable to obtain Work up: UA with large LE CXR normal Objective - Vital Signs/Intake and Output Vital Signs (last 24 hours): Temp Pulse Resp BP Pulse Ox 96.4 F L 56 L 18 172/62 H 98 08/10/17 08:39 08/11/17 06:00 08/10/17 08:39 08/10/17 17:43 08/10/17 08:39 - Medications Medications: Current Medications Acetaminophen (Tylenol 325mg Tab) 650 mg PO Q4H PRN PRN Reason: Pain, Mild (1-3) Aspirin (Aspirin Chewable) 81 mg PO DAILY [facility] Last Admin: 08/10/17 09:54 Dose: 81 mg Cefpodoxime Proxetil (Vantin) 100 mg PO Q12 [facility] PRN Reason: Protocol Stop: 08/16/17 10:01 Donepezil HCl (Aricept) 10 mg PO HS [facility] Last Admin: 08/10/17 21:41 Dose: Not Given Dorzolamide/Timolol (Cosopt 2%-0.5% Opht) 1 drop OU BID [facility] Enoxaparin Sodium (Lovenox) 30 mg SC DAILY [facility] PRN Reason: Protocol Last Admin: 08/10/17 09:54 Dose: 30 mg Ergocalciferol (Drisdol 50,000 Intl Units Cap) 1 cap PO Q7D [facility] Last Admin: 08/09/17 14:27 Dose: 1 cap Ferrous Gluconate (Fergon) 324 mg PO TID [facility] Last Admin: 08/10/17 17:43 Dose: 324 mg Home Med (Home Med) 1 unit OU HS [facility] Home Med (Home Med) 1 unit OS TID [facility] Hydralazine HCl (Apresoline) 10 mg IVP Q6 PRN PRN Reason: Other Cefepime HCl (Maxipime 1gm) 1 gm in 100 mls @ 100 mls/hr IVPB Q12 [facility] PRN Reason: Protocol Stop: 08/16/17 22:01 Last Admin: 08/10/17 09:54 Dose: 100 mls/hr Lisinopril (Zestril) 40 mg PO DAILY [facility] Pantoprazole Sodium (Protonix Ec Tab) 40 mg PO ACB [facility] Quetiapine Fumarate (Seroquel) 12.5 mg PO HS [facility] PRN Reason: Protocol Last Admin: 08/10/17 21:41 Dose: Not Given Vitamin B Complex/Vit C/Folic Acid (Nephro-Aspen) 1 tab PO 0800 [facility] Last Admin: 08/10/17 09:55 Dose: 1 tab
[2017-08-11] MEDS: BRIMONIDINE TARTRATE 0.1% OS SCH ×2 (10:50→15:34)
[2017-08-11] MEDS: Enoxaparin 30 mg Syringe SC SCH (10:50)
[2017-08-11] MEDS: Multivitamin Vitamin B Complex (Nephro-Vite) Tab PO SCH (10:51)
[2017-08-11] MEDS: Pantoprazole 40 mg EC Tab PO SCH (10:51)
[2017-08-11] MEDS: Cefpodoxime (Vantin) 100 mg Tab PO SCH ×2 (10:51→22:51)
--- NOTE | 2017-08-11 11:20 | PN ---
DATE: 08/11/2017 SUBJECTIVE: The patient is in bed in room 376, bed 2. No fevers. No chills. PHYSICAL EXAMINATION: VITAL SIGNS: On exam, temperature is 96, blood pressure is 170/60, respiratory rate of 18, heart rate of 68. HEENT: Examination of HEENT is unremarkable. NECK: Supple. LUNGS: Have decreased breath sounds. HEART: Normal S1, S2. ABDOMEN: Soft, nontender. LABORATORY DATA: Laboratory examination reveals a white count of 6.4, hemoglobin of 11, platelets of 207. Chemistries reveals a BUN of 34, creatinine of 1.2. Urinalysis is noted. Microbiology reveals the blood cultures are negative. Urine cultures are negative. The urine cultures were collected at 04:40 on 08/08/2017. Review of orders and the history, antibiotics are reviewed. Dr. Johnson's note is reviewed. Dr. Jacobsen's progress note is reviewed. ASSESSMENT AND PLAN: An 87-year-old female with hypertension, arthritis, dementia, kidney disease, change in mental status, urinary tract infection and cefepime was placed on hold by , possibly because of IV access. We will treat with p.o. Vantin at 100 mg b.i.d. x5 days. Ari Wells MD
[2017-08-11] MEDS: Dorzolamide 2%/Timolol 0.5% 100 DROP/10 ML BOTTLE OU SCH ×2 (12:51→18:23)
[2017-08-11] MEDS: BIMATOPROST 0.01% OU SCH (22:00)
[2017-08-12] MEDS: Multivitamin Vitamin B Complex (Nephro-Vite) Tab PO SCH (09:38)
[2017-08-12] MEDS: Pantoprazole 40 mg EC Tab PO SCH (09:38)
[2017-08-12] MEDS: Cefpodoxime (Vantin) 100 mg Tab PO SCH ×2 (09:38→22:14)
[2017-08-12] MEDS: Enoxaparin 30 mg Syringe SC SCH (09:38)
[2017-08-12] MEDS: BRIMONIDINE TARTRATE 0.1% OS SCH ×3 (10:02→18:32)
[2017-08-12] MEDS: Dorzolamide 2%/Timolol 0.5% 100 DROP/10 ML BOTTLE OU SCH ×2 (10:02→18:28)
--- NOTE | 2017-08-12 11:51 | CP.PCM.PN ---
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 renal funtion stable Hypertension control with meds as ordered. increased ACEi dose as 40 mg/day target BP <150/90 mmHg. will add norvasc 5 mg, uptitrate if neded further started iron supplements MVI and weekly Vit D Dose meds/antibiotics for reduced GFR. Avoid fleets enema. Avoid nephrotoxins/ NSAIDs/ iodinated contrast (unless needed emergently) Glycemic control, Further work up for as per primary team. Thanks for allowing me to participate in care of your patient. Will follow with you. Please call if any Qs. had d/w team Dr Eliseo Johnson Office: [phone] reason for consult: HTN and CKD HPI: Pt is a 87 y/o F with hx of HTN, CKD stage 3 with baseline serum cr 1.4, dementia, osteoarthritis came with behavioral changes. she had [employer] today for AMS , BP at that time increased to 200 range renal consult for CKD and HTN management. pt unable to provide any hx ROS: she denies SOB/chest pain/nausea/vomitting. alert awake and communicative today Physical Examination: General Appearance: Comfortable, in no acute respiratory distress, co- operative. thin built elderly female and appears malnourished Vitals reviewed and noted as below Head; Atraumatic, normocephalic ENT: no ulcers no thrush. Tongue is midline/moist. Oropharynx: no rash or ulcers. EYES: Pupils are equal, round and reactive to light accommodation. Eye muscles and extraocular movement intact. Sclera is anicteric. Neck; supple no lymphadenopathy, no thyromegaly or bruit Lungs: Normal respiratory rate/effort. Breath sounds appears decreased at bases but poor inspiratory efforts Heart: Normal rate. s1s2 normal. No rub or gallop. Extremities: trace edema. No varicose veins Neurological: Patient is alert, awake, oriented x 2 but has dementia. follows commands Skin: dry and warm. Normal turgor. No rash. Palpitation: Normal elasticity for age Abdomen: Abdomen is soft non tender no apparent organomegaly Psych: lack insight. has normal affect and mood MSK: no specific joint tenderness or swelling. Digits and nails normal, no deformity : kidney or bladder not palpable. Labs/imaging/EKG reviewed. Past medical history, past surgical history, social history, allergy reviewed and noted as below Family hx; unable to obtain Work up: UA with large LE CXR normal Objective - Vital Signs/Intake and Output Vital Signs (last 24 hours): Temp Pulse Resp BP Pulse Ox 98.0 F 55 L 19 186/73 H 98 08/11/17 06:00 08/12/17 07:19 08/12/17 07:19 08/12/17 07:19 08/12/17 07:19 Intake and Output: 08/12/17 08/12/17 06:59 18:59 Intake Total 120 Balance 120 - Medications Medications: Current Medications Acetaminophen (Tylenol 325mg Tab) 650 mg PO Q4H PRN PRN Reason: Pain, Mild (1-3) Amlodipine Besylate (Norvasc) 5 mg PO DAILY [facility] Last Admin: 08/12/17 10:02 Dose: 5 mg Aspirin (Aspirin Chewable) 81 mg PO DAILY [facility] Last Admin: 08/12/17 09:37 Dose: 81 mg Cefpodoxime Proxetil (Vantin) 100 mg PO Q12 [facility] PRN Reason: Protocol Stop: 08/16/17 10:01 Last Admin: 08/12/17 09:38 Dose: 100 mg Donepezil HCl (Aricept) 10 mg PO HS [facility] Last Admin: 08/11/17 22:51 Dose: 10 mg Dorzolamide/Timolol (Cosopt 2%-0.5% Opht) 1 drop OU BID [facility] Last Admin: 08/12/17 10:02 Dose: 1 drop Enoxaparin Sodium (Lovenox) 30 mg SC DAILY [facility] PRN Reason: Protocol Last Admin: 08/12/17 09:38 Dose: 30 mg Ergocalciferol (Drisdol 50,000 Intl Units Cap) 1 cap PO Q7D [facility] Last Admin: 08/09/17 14:27 Dose: 1 cap Ferrous Gluconate (Fergon) 324 mg PO TID [facility] Last Admin: 08/12/17 09:37 Dose: 324 mg Home Med (Home Med) 1 unit OU HS [facility] Last Admin: 08/11/17 22:00 Dose: Not Given Home Med (Home Med) 1 unit OS TID [facility] Last Admin: 08/12/17 10:02 Dose: Not Given Hydralazine HCl (Apresoline) 10 mg IVP Q6 PRN PRN Reason: Other Lisinopril (Zestril) 40 mg PO DAILY [facility] Last Admin: 08/12/17 08:00 Dose: 40 mg Pantoprazole Sodium (Protonix Ec Tab) 40 mg PO ACB [facility] Last Admin: 08/12/17 09:38 Dose: 40 mg Quetiapine Fumarate (Seroquel) 12.5 mg PO [facility] PRN Reason: Protocol Last Admin: 08/11/17 22:00 Dose: 12.5 mg Vitamin B Complex/Vit C/Folic Acid (Nephro-Aspen) 1 tab PO 0800 [facility] Last Admin: 08/12/17 09:38 Dose: 1 tab Zolpidem Tartrate (Ambien) 5 mg PO HS PRN; Protocol PRN Reason: Insomnia
--- NOTE | 2017-08-12 15:16 | PN ---
DATE: 08/12/2017 SUBJECTIVE: Patient is seen in room 376, bed 2. No fevers and no chills. No nausea. She is confused. PHYSICAL EXAMINATION: VITAL SIGNS: Temperature is 98, blood pressure is 180/70, respiratory rate 18. HEENT: Unremarkable. NECK: Supple. LUNGS: Have decreased breath sounds. HEART: Normal S1, S2. ABDOMEN: Soft, nontender. No organomegaly. No rebound or guarding. No masses. LABORATORY EXAMINATION: Reveals a white count of 6.4, hemoglobin 11, platelets of 207. Chemistries are noted and urinalysis is noted and there is large leukocyte esterase, 10-15 wbc's. Microbiology reveals the blood and urine cultures are negative and Dr. Johnson's note is reviewed and Dr. Brock's communication report is reviewed. Review of orders reveals the patient to be on cefpodoxime. ASSESSMENT AND PLAN: This is an 87-year-old female, seen earlier today in room 376, bed 2, who has hypertension, arthritis and dementia, kidney disease, admitted with change in mental status and positive urinalysis; however, the urine culture was negative, received cefpodoxime; currently, with p.o. Vantin 100 mg p.o. b.i.d. times 4 more days, adjusted for renal insufficiency in a patient with underlying dementia. Ari Wells MD
[2017-08-12] MEDS: BIMATOPROST 0.01% OU SCH (21:51)
--- NOTE | 2017-08-13 00:33 | PN ---
DATE: 08/10/2017 SUBJECTIVE: Patient seems doing better, still one-on-one observation, no agitation. During the exam, she is little bit more awake and no respiratory distress. Seems stable, more alert, no respiratory distress, no complaints. Patient also getting eye drops, will resume the eye drops. Seen by neonatologist. Seen by psychiatrist. PHYSICAL EXAMINATION: VITAL SIGNS: On 08/10/2017, patient has following vitals. Temperature is 98, heart rate 68, blood pressure 152/68, respirations 18, saturation 98% on room air. HEAD AND NECK: Normal. No JVD. No thyromegaly. CHEST: Clear bilaterally. CARDIAC: Normal. First sound and second sound normal. No murmur, rub, or gallop. ABDOMEN: Soft, nontender. EXTREMITIES: No edema. NEUROLOGICAL: Normal. LABORATORY DATA: Last lab shows white count 6.4, hemoglobin 11, hematocrit 33.8, platelets 207. Chemistry: Sodium 146, potassium 3.9, chloride 110, bicarb 27, BUN 34, creatinine 1.2. Liver function test is normal. Ferritin is 193. Vitamin D level is 20.4. TSH 2.17. IMPRESSION AND PLAN: 1. Acute behavioral changes, agitation. Etiology could be due to dehydration or urinary tract infection. Patient was seen by psych consult Dr. Steel and was given Seroquel 12.5 at bedtime to help her sleep and calm her down. She seems better. 2. Hypertension. Continue Zestril 40 mg and Norvasc 5 mg. Monitor blood pressure. Renal consult on the case. We will continue follow up with him, . 3. Glaucoma. Continue the glaucoma medication Lumigan and Alphagan and Cosopt. 4. Insomnia. Continue Ambien. Continue baby aspirin. Continue iron pills. Patient is getting Lovenox 30 mg subcutaneous daily and will follow up clinically. 5. Urinary tract infection. Merrem IV. We have problem with IV access and may consider switching to p.o. Vantin. We will continue followup with ID consult. Continue current treatment. Jered Jacobsen MD
--- NOTE | 2017-08-13 01:44 | PN ---
DATE: 08/11/2017 SUBJECTIVE: Patient is comfortable, no distress, no complaint. She ate her lunch and she had a bowel movement. She require one-to-one. No other complaints. Seen by the consultants. She is on p.o. antibiotics. PHYSICAL EXAMINATION: Patient's physical examination on 08/11/2017 is as follows: VITAL SIGNS: Temperature 98, heart rate 62, blood pressure 150/66, respirations 16, saturation 97%. HEAD AND NECK: Normal. No JVD. No thyromegaly. CHEST: Clear bilaterally. CARDIAC: First sound and second sound normal. No murmur, rubs, or gallop. ABDOMEN: Soft, nontender. EXTREMITIES: No edema. NEUROLOGIC: Normal. IMPRESSION AND PLAN: 1. Hypertension. We will resume current blood pressure medications, lisinopril 40 mg daily. 2. Dehydration, IV fluid. Patient to start eating. Continue and encourage p.o. intake. 3. Dementia. Continue Aricept 10 mg. Patient has difficulty taking the medicines. She refused some of the medicines. We will discuss with the patient. 4. Patient also has iron-deficiency anemia. Continue Fergon. 5. Agitation, insomnia. Seroquel 12.5 at bedtime plus 5 mg Ambien. 6. Patient has glaucoma. Continue Cosopt. Continue Alphagan and other eye drops. 7. Urinary tract infection. Continue Vantin. 8. Acute behavior changes. 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 Continue Aricept, continue Seroquel. I will follow up. Patient will need one-to-one for now. She may need more medication to get her off one-to-one plus she needs placement; patient cannot stay home alone. Continue current medications. Follow up clinically. Jered Jacobsen MD
--- NOTE | 2017-08-13 06:50 | CON ---
DATE: HISTORY OF PRESENT ILLNESS: The patient is an 87-year-old female who is psychiatrist following for change in mental status with hallucinations in the context of delirium on dementia. I reviewed Dr. Romero's notes as well as staff nurse on the unit and I met with the patient at bedside this morning. The patient is uncooperative largely during my interview. The patient is . She reports that the current month is either July or August. She is generally very pleasant and smiling and cooperative with my questioning. There is some mild speech latency as well as latency in comprehension as she has to repeat some questions to herself before she gave to respond. However, in general her responses are relevant to questioning. She is disoriented consistent with her diagnosis of dementia and she is aware of her increased confusion she is having in the last couple of days. The patient does feel a little bit better and feels less confused and indicates that she was quite concerned about her confusion, but she is feeling improved at this time. Her thought process is disorganized at times, but it seems to be clearing as much as it can be expressive with her diagnosis of dementia. She denies being depressed. Denies thoughts of wanting to harm herself or others. Denies wishes and her appearance is mildly anxious, but in good control. The patient denies any pain at this time, comprehension is comfortable. Her insight and judgment are impaired, but they are improving. In question delirium on dementia, delirium appears to be improving. MEDICATIONS: Include Seroquel 12.5 mg at bedtime. RECOMMENDATIONS: To continue with current treatment and plan including Seroquel 12.5 at bedtime. There is no acute indication to change the medication. The patient does appear to be improving. The patient is no longer hallucinating and her behavior is in better control, though she does show episodic confusion as delirium appears to resolve on its own. Psychiatry will sign off at this time. Please reconsult as necessary, if there are any changes in her presentation. Castillo Brock MD
[2017-08-13] MEDS: Dorzolamide 2%/Timolol 0.5% 100 DROP/10 ML BOTTLE OU SCH ×2 (07:00→17:50)
--- NOTE | 2017-08-13 07:55 | CP.PCM.PN ---
Subjective - Date & Time of Evaluation Date of Evaluation: 08/13/17 Time of Evaluation: 06:40 - Subjective Subjective: Asleep, no distress, monitor showed NSR Reason for consultation and follow up: Cardiac evaluation for bradycardia, history of advanced dementia, hypertension, chronic kidney disease Seen and examined by me and Dr. Mckeon Objective - Vital Signs/Intake and Output Vital Signs (last 24 hours): Temp Pulse Resp BP Pulse Ox 97.8 F 68 21 192/70 H 96 08/13/17 06:00 08/13/17 06:00 08/13/17 06:00 08/13/17 06:00 08/13/17 06:00 Intake and Output: 08/13/17 08/13/17 06:59 18:59 Intake Total 120 Balance 120 - Medications Medications: Current Medications Acetaminophen (Tylenol 325mg Tab) 650 mg PO Q4H PRN PRN Reason: Pain, Mild (1-3) Amlodipine Besylate (Norvasc) 5 mg PO DAILY [facility] Last Admin: 08/12/17 10:02 Dose: 5 mg Aspirin (Aspirin Chewable) 81 mg PO DAILY [facility] Last Admin: 08/12/17 09:37 Dose: 81 mg Cefpodoxime Proxetil (Vantin) 100 mg PO Q12 [facility] PRN Reason: Protocol Stop: 08/16/17 10:01 Last Admin: 08/12/17 22:14 Dose: 100 mg Donepezil HCl (Aricept) 10 mg PO [facility] Last Admin: 08/12/17 22:14 Dose: 10 mg Dorzolamide/Timolol (Cosopt 2%-0.5% Opht) 1 drop OU BID [facility] Last Admin: 08/12/17 18:28 Dose: 1 drop Enoxaparin Sodium (Lovenox) 30 mg SC DAILY [facility] PRN Reason: Protocol Last Admin: 08/12/17 09:38 Dose: 30 mg Ergocalciferol (Drisdol 50,000 Intl Units Cap) 1 cap PO Q7D [facility] Last Admin: 08/09/17 14:27 Dose: 1 cap Ferrous Gluconate (Fergon) 324 mg PO TID [facility] Last Admin: 08/12/17 18:33 Dose: Not Given Home Med (Home Med) 1 unit OU [facility] Last Admin: 08/12/17 21:51 Dose: Not Given Home Med (Home Med) 1 unit OS TID [facility] Last Admin: 08/12/17 18:32 Dose: Not Given Hydralazine HCl (Apresoline) 10 mg IVP Q6 PRN PRN Reason: Other Lisinopril (Zestril) 40 mg PO DAILY [facility] Last Admin: 08/12/17 08:00 Dose: 40 mg Pantoprazole Sodium (Protonix Ec Tab) 40 mg PO ACB [facility] Last Admin: 08/12/17 09:38 Dose: 40 mg Quetiapine Fumarate (Seroquel) 12.5 mg PO HS [facility] PRN Reason: Protocol Last Admin: 08/12/17 22:14 Dose: 12.5 mg Vitamin B Complex/Vit C/Folic Acid (Nephro-Aspen) 1 tab PO 0800 [facility] Last Admin: 08/12/17 09:38 Dose: 1 tab Zolpidem Tartrate (Ambien) 5 mg PO HS PRN; Protocol PRN Reason: Insomnia - Constitutional Appears: No Acute Distress - Eye Exam Eye Exam: Normal appearance - ENT Exam ENT Exam: Mucous Membranes Moist - Respiratory Exam Respiratory Exam: Decreased Breath Sounds, NORMAL BREATHING PATTERN - Cardiovascular Exam Cardiovascular Exam: +S1, +S2 Additional comments: NSR telemety-70's/min - GI/Abdominal Exam GI & Abdominal Exam: Soft, Normal Bowel Sounds - Extremities Exam Extremities Exam: Normal Capillary Refill - Neurological Exam Neurological Exam: Alert, Awake Additional comments: confuse, with sitter - Skin Skin Exam: Dry, Normal Color, Warm Assessment and Plan - Assessment and Plan (Free Text) Assessment: An 87 year old female who was brought to the ER for psychiatric evaluation. History of hypertension, arthritis, and advance dementia. Cardiac evaluation was called for bradycardia. Patient was taking Timolol eyedrops. Plan: On holter monitor,will review results Bradycardia resolved, maybe secondary to Timolol. Heart rate now on NSR 70/min Will increase Norvasc for high blood pressure and PRN Hydralazine Continue current treatment Continue current medications Will follow up Plan and treatment discussed with Dr. Mckeon
[2017-08-13] MEDS: Multivitamin Vitamin B Complex (Nephro-Vite) Tab PO SCH (08:37)
[2017-08-13] MEDS: Pantoprazole 40 mg EC Tab PO SCH (08:38)
[2017-08-13] MEDS: BRIMONIDINE TARTRATE 0.1% OS SCH ×3 (10:00→17:49)
[2017-08-13] MEDS: Enoxaparin 30 mg Syringe SC SCH (11:07)
--- NOTE | 2017-08-13 15:40 | CP.PCM.PN ---
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 renal funtion stable Hypertension control with meds as ordered. added chlorthalidone 25 mg/day. check renal artery doppler started iron supplements MVI and weekly Vit D Dose meds/antibiotics for reduced GFR. Avoid fleets enema. Avoid nephrotoxins/ NSAIDs/ iodinated contrast (unless needed emergently) Glycemic control, Further work up for as per primary team. Thanks for allowing me to participate in care of your patient. Will follow with you. Please call if any Qs. had d/w team Dr Eliseo Johnson Office: [phone] reason for consult: HTN and CKD HPI: Pt is a 87 y/o F with hx of HTN, CKD stage 3 with baseline serum cr 1.4, dementia, osteoarthritis came with behavioral changes. she had [employer] today for AMS , BP at that time increased to 200 range renal consult for CKD and HTN management. pt unable to provide any hx ROS: she denies SOB/chest pain/nausea/vomitting. alert awake and communicative today Physical Examination: General Appearance: Comfortable, in no acute respiratory distress, co- operative. thin built elderly female and appears malnourished Vitals reviewed and noted as below Head; Atraumatic, normocephalic ENT: no ulcers no thrush. Tongue is midline/moist. Oropharynx: no rash or ulcers. EYES: Pupils are equal, round and reactive to light accommodation. Eye muscles and extraocular movement intact. Sclera is anicteric. Neck; supple no lymphadenopathy, no thyromegaly or bruit Lungs: Normal respiratory rate/effort. Breath sounds appears decreased at bases but poor inspiratory efforts Heart: Normal rate. s1s2 normal. No rub or gallop. Extremities: trace edema. No varicose veins Neurological: Patient is alert, awake, oriented x 2 but has dementia. follows commands Skin: dry and warm. Normal turgor. No rash. Palpitation: Normal elasticity for age Abdomen: Abdomen is soft non tender no apparent organomegaly Psych: lack insight. has normal affect and mood MSK: no specific joint tenderness or swelling. Digits and nails normal, no deformity : kidney or bladder not palpable. Labs/imaging/EKG reviewed. Past medical history, past surgical history, social history, allergy reviewed and noted as below Family hx; unable to obtain Work up: UA with large LE CXR normal Objective - Vital Signs/Intake and Output Vital Signs (last 24 hours): Temp Pulse Resp BP Pulse Ox 97.8 F 68 21 192/70 H 96 08/13/17 08:41 08/13/17 08:41 08/13/17 08:41 08/13/17 08:41 08/13/17 08:41 Intake and Output: 08/13/17 08/13/17 06:59 18:59 Intake Total 120 Balance 120 - Medications Medications: Current Medications Acetaminophen (Tylenol 325mg Tab) 650 mg PO Q4H PRN PRN Reason: Pain, Mild (1-3) Amlodipine Besylate (Norvasc) 10 mg PO DAILY [facility] Aspirin (Aspirin Chewable) 81 mg PO DAILY [facility] Last Admin: 08/12/17 09:37 Dose: 81 mg Cefpodoxime Proxetil (Vantin) 100 mg PO Q12 [facility] PRN Reason: Protocol Stop: 08/16/17 10:01 Last Admin: 08/12/17 22:14 Dose: 100 mg Chlorthalidone (Hygroton) 25 mg PO DAILY [facility] Last Admin: 08/13/17 11:15 Dose: 25 mg Donepezil HCl (Aricept) 10 mg PO HS [facility] Last Admin: 08/12/17 22:14 Dose: 10 mg Dorzolamide/Timolol (Cosopt 2%-0.5% Opht) 1 drop OU BID [facility] Last Admin: 08/12/17 18:28 Dose: 1 drop Enoxaparin Sodium (Lovenox) 30 mg SC DAILY [facility] PRN Reason: Protocol Last Admin: 08/13/17 11:07 Dose: 30 mg Ergocalciferol (Drisdol 50,000 Intl Units Cap) 1 cap PO Q7D [facility] Last Admin: 08/09/17 14:27 Dose: 1 cap Ferrous Gluconate (Fergon) 324 mg PO TID [facility] Last Admin: 08/12/17 18:33 Dose: Not Given Home Med (Home Med) 1 unit OU HS [facility] Last Admin: 08/12/17 21:51 Dose: Not Given Home Med (Home Med) 1 unit OS TID [facility] Last Admin: 08/12/17 18:32 Dose: Not Given Hydralazine HCl (Apresoline) 10 mg IVP Q6 PRN PRN Reason: Other Hydralazine HCl (Apresoline) 50 mg PO BID [facility] Lisinopril (Zestril) 40 mg PO DAILY [facility] Last Admin: 08/12/17 08:00 Dose: 40 mg Pantoprazole Sodium (Protonix Ec Tab) 40 mg PO ACB [facility] Last Admin: 08/13/17 08:38 Dose: 40 mg Quetiapine Fumarate (Seroquel) 12.5 mg PO HS [facility] PRN Reason: Protocol Last Admin: 08/12/17 22:14 Dose: 12.5 mg Vitamin B Complex/Vit C/Folic Acid (Nephro-Aspen) 1 tab PO 0800 [facility] Last Admin: 08/13/17 08:37 Dose: 1 tab Zolpidem Tartrate (Ambien) 5 mg PO HS PRN; Protocol PRN Reason: Insomnia
--- NOTE | 2017-08-13 16:30 | CP.PCM.PN ---
Subjective - Date & Time of Evaluation Date of Evaluation: 08/13/17 Time of Evaluation: 09:40 - Subjective Subjective: Comfortable, no fevers. Objective - Vital Signs/Intake and Output Vital Signs (last 24 hours): Temp Pulse Resp BP Pulse Ox 97.8 F 68 21 192/70 H 96 08/13/17 08:41 08/13/17 08:41 08/13/17 08:41 08/13/17 08:41 08/13/17 08:41 Intake and Output: 08/13/17 08/13/17 06:59 18:59 Intake Total 120 Balance 120 - Medications Medications: Current Medications Acetaminophen (Tylenol 325mg Tab) 650 mg PO Q4H PRN PRN Reason: Pain, Mild (1-3) Amlodipine Besylate (Norvasc) 10 mg PO DAILY [facility] Aspirin (Aspirin Chewable) 81 mg PO DAILY [facility] Last Admin: 08/12/17 09:37 Dose: 81 mg Cefpodoxime Proxetil (Vantin) 100 mg PO Q12 [facility] PRN Reason: Protocol Stop: 08/16/17 10:01 Last Admin: 08/12/17 22:14 Dose: 100 mg Chlorthalidone (Hygroton) 25 mg PO DAILY [facility] Last Admin: 08/13/17 11:15 Dose: 25 mg Donepezil HCl (Aricept) 10 mg PO HS [facility] Last Admin: 08/12/17 22:14 Dose: 10 mg Dorzolamide/Timolol (Cosopt 2%-0.5% Opht) 1 drop OU BID [facility] Last Admin: 08/12/17 18:28 Dose: 1 drop Enoxaparin Sodium (Lovenox) 30 mg SC DAILY [facility] PRN Reason: Protocol Last Admin: 08/13/17 11:07 Dose: 30 mg Ergocalciferol (Drisdol 50,000 Intl Units Cap) 1 cap PO Q7D [facility] Last Admin: 08/09/17 14:27 Dose: 1 cap Ferrous Gluconate (Fergon) 324 mg PO TID [facility] Last Admin: 08/12/17 18:33 Dose: Not Given Home Med (Home Med) 1 unit OU HS [facility] Last Admin: 08/12/17 21:51 Dose: Not Given Home Med (Home Med) 1 unit OS TID [facility] Last Admin: 08/12/17 18:32 Dose: Not Given Hydralazine HCl (Apresoline) 10 mg IVP Q6 PRN PRN Reason: Other Hydralazine HCl (Apresoline) 50 mg PO BID [facility] Lisinopril (Zestril) 40 mg PO DAILY [facility] Last Admin: 08/12/17 08:00 Dose: 40 mg Pantoprazole Sodium (Protonix Ec Tab) 40 mg PO ACB [facility] Last Admin: 08/13/17 08:38 Dose: 40 mg Quetiapine Fumarate (Seroquel) 12.5 mg PO HS [facility] PRN Reason: Protocol Last Admin: 08/12/17 22:14 Dose: 12.5 mg Vitamin B Complex/Vit C/Folic Acid (Nephro-Aspen) 1 tab PO 0800 [facility] Last Admin: 08/13/17 08:37 Dose: 1 tab Zolpidem Tartrate (Ambien) 5 mg PO HS PRN; Protocol PRN Reason: Insomnia - Constitutional Appears: Chronically Ill - Head Exam Head Exam: NORMAL INSPECTION - Respiratory Exam Respiratory Exam: Decreased Breath Sounds - Cardiovascular Exam Cardiovascular Exam: +S1, +S2 - GI/Abdominal Exam GI & Abdominal Exam: Soft. absent: Tenderness Assessment and Plan - Assessment and Plan (Free Text) Plan: Assessment UTI with positive urinalysis HTN arthritis dementia COPD chronic renal failure Plan Continue PO Vantin for another 3 days
--- NOTE | 2017-08-13 19:33 | US ---
PROCEDURE: Bilateral renal artery duplex ultrasound. CLINICAL HISTORY: Renal artery stenosis. Uncontrolled hypertension. Evaluate for renovascular hypertension. PHYSICIAN(S): Fab Bhatia M.D. TECHNIQUE: Duplex sonography with color-flow Doppler was used to evaluate the visualized segments of the main renal arteries. The patient was evaluated in a fasting state. Imaging in a supine and decubitus position was performed. Limited evaluation of the arcuate waveforms and resistive indices were performed. FINDINGS: The exam is somewhat limited the kidneys are small with echogenic appearing parenchymal. The right kidney measures 8.2 cm in length in the left kidney measures 8.7 cm in length. No evidence of hydronephrosis or significant calcifications are appreciated. Visualization of the main right renal artery is somewhat limited.. Focal elevated velocities are seen in the mid renal artery, up to 437 cm/second. This is consistent with a 50-99 percent mid right renal artery stenosis. The main left renal artery is limited due to tortuous vessels.. The peak systolic velocity in the main left renal artery is 111cm/sec. This corresponds to a 0 to 49% stenosis in the main left renal artery. The arcuate waveforms and resistive indices are normal. IMPRESSION: 1. The kidneys are small and the renal parenchyma is echogenic. No evidence of hydronephrosis is seen 2. Markedly elevated focal velocity in the mid right renal artery, 437 cm/second, consistent with 50-99% stenosis. If further evaluation is indicated, an MRA, CTA, or conventional arteriogram can be performed. 3. Patent left renal artery.
[2017-08-13] MEDS: Cefpodoxime (Vantin) 100 mg Tab PO SCH (21:34)
[2017-08-13] MEDS: BIMATOPROST 0.01% OU SCH (21:53)
--- NOTE | 2017-08-13 22:22 | PN ---
DATE: 08/13/2017 SUBJECTIVE: Patient is stable, comfortable, in no distress, eating, walking with assistance to the bathroom. She has no other complaint, waiting for placement. PHYSICAL EXAMINATION: VITAL SIGNS: Temperature 97.8, heart rate 65, blood pressure 150/75, respirations 21, saturation 96% on room air. HEAD AND NECK: Normal. No JVD. No thyromegaly. CHEST: Clear bilaterally. Good air entry. CARDIAC: First sound, second sound normal. No murmur, rubs, or gallop. ABDOMEN: Soft, nontender. EXTREMITIES: No edema. NEUROLOGIC: Nonfocal. She moves all extremities. CURRENT MEDICATIONS: She takes Ambien 5 mg every night, hydralazine 10 mg IV every 6 hour p.r.n., hydralazine 50 mg p.o. b.i.d., Aricept 10 mg every night, aspirin 81, Cosopt. HOME MEDICATIONS: Alphagan for glaucoma. Patient also is taking chlorthalidone 25 mg p.o. daily, Lovenox 30 mg daily, Nephro-Aspen one tablet daily, Norvasc 10 mg, Protonix 40 mg once a day, Seroquel 12.5 mg every night, Tylenol 650 every 4 hour p.r.n., Vantin 100 b.i.d. p.o., and Zestril 40 mg p.o. daily. IMPRESSION AND PLAN: 1. Acute change in mental status, dehydration, urinary tract infections. Patient seems stable now, mentally more alert and awake, cooperative, and seems stable. 2. Dementia, continue Aricept, seems to be doing well. Continue multivitamins. 3. Iron-deficiency anemia. Patient needs workup including colonoscopy, however, with this clinical condition and continue iron pills twice a day for now. 4. Hypertension, still difficult to control. Continue lisinopril, Norvasc, hydralazine, and chlorthalidone. We will follow up clinically with the outside plant field engineer, seems doing better now. 5. Agitation, insomnia. Patient is doing well with Seroquel 12.5 at bedtime plus Ambien. 6. Urinary tract infection, continue Vantin. 7. Glaucoma. Patient is stable on Cosopt and Alphagan and other eyedrops. Continue other home eyedrops. Continue current medications. We will discuss with the team about placement, may be [facility] and/or [facility]. We will discuss with the wrapper caser. Continue the iron and deep venous thrombosis prophylaxis. Jered Jacobsen MD
[2017-08-14 06:22] LABS: BASO # 0.01 K/mm3 (0.0-2.0); BASO % 0.1 % (0.0-3.0); EOS # 0.1 (0.0-0.7); EOS % 1.9 % (1.5-5.0); GRAN # 4.37 (1.4-6.5); GRAN % 63.7 % (50.0-68.0); LYMPH # 1.7 (1.2-3.4); LYMPH % 24.2 % (22.0-35.0); MEAN CELL VOLUME 89.9 fl (80.0-105.0); MEAN CORPUSCULAR HEMOGLOBIN 29.9 pg (25.0-35.0); MEAN CORPUSCULAR HGB CONC 33.2 g/dl (31.0-37.0); MEAN PLATELET VOLUME 11.5 fl (7.0-11.0); MONO # 0.7 (0.1-0.6); MONO % 10.1 % (1.0-6.0); RBC 3.35 10^6/uL (3.5-6.1); RED CELL DISTRIBUTION WIDTH 13.8 % (11.5-14.5); WHITE BLOOD COUNT 6.9 10^3/ul (4.5-11.0)
[2017-08-14 06:59] LABS: ALB/GLOB RATIO 1.2 (1.1-1.8); ALBUMIN 3.1 g/dL (3.0-4.8)
--- NOTE | 2017-08-14 07:27 | CP.PCM.PN ---
Subjective - Date & Time of Evaluation Date of Evaluation: 08/14/17 Time of Evaluation: 06:45 - Subjective Subjective: Lying in bed,sleeping but easily awaken,with sitter, no distress, Reason for consultation and follow up: Cardiac evaluation for bradycardia, history of advanced dementia, hypertension, chronic kidney disease Seen and examined by me and Dr. Mckeon Objective - Vital Signs/Intake and Output Vital Signs (last 24 hours): Temp Pulse Resp BP Pulse Ox 98.3 F 66 20 143/55 L 98 08/14/17 06:44 08/14/17 06:44 08/14/17 06:44 08/14/17 06:44 08/14/17 06:44 Intake and Output: 08/14/17 08/14/17 06:59 18:59 Intake Total 180 Balance 180 - Medications Medications: Current Medications Acetaminophen (Tylenol 325mg Tab) 650 mg PO Q4H PRN PRN Reason: Pain, Mild (1-3) Amlodipine Besylate (Norvasc) 10 mg PO DAILY [facility] Aspirin (Aspirin Chewable) 81 mg PO DAILY [facility] Last Admin: 08/12/17 09:37 Dose: 81 mg Cefpodoxime Proxetil (Vantin) 100 mg PO Q12 [facility] PRN Reason: Protocol Stop: 08/16/17 10:01 Last Admin: 08/13/17 21:34 Dose: 100 mg Chlorthalidone (Hygroton) 25 mg PO DAILY [facility] Last Admin: 08/13/17 11:15 Dose: 25 mg Donepezil HCl (Aricept) 10 mg PO [facility] Last Admin: 08/13/17 21:34 Dose: 10 mg Dorzolamide/Timolol (Cosopt 2%-0.5% Opht) 1 drop OU BID [facility] Last Admin: 08/13/17 17:50 Dose: 1 drop Enoxaparin Sodium (Lovenox) 40 mg SC DAILY [facility] PRN Reason: Protocol Ergocalciferol (Drisdol 50,000 Intl Units Cap) 1 cap PO Q7D [facility] Last Admin: 08/09/17 14:27 Dose: 1 cap Ferrous Gluconate (Fergon) 324 mg PO TID [facility] Last Admin: 08/13/17 17:49 Dose: 324 mg Home Med (Home Med) 1 unit OU [facility] Last Admin: 08/13/17 21:53 Dose: Not Given Home Med (Home Med) 1 unit OS TID [facility] Last Admin: 08/13/17 17:49 Dose: Not Given Hydralazine HCl (Apresoline) 10 mg IVP Q6 PRN PRN Reason: Other Hydralazine HCl (Apresoline) 50 mg PO BID [facility] Last Admin: 08/13/17 21:34 Dose: 50 mg Lisinopril (Zestril) 40 mg PO DAILY [facility] Last Admin: 08/12/17 08:00 Dose: 40 mg Pantoprazole Sodium (Protonix Ec Tab) 40 mg PO ACB [facility] Last Admin: 08/13/17 08:38 Dose: 40 mg Quetiapine Fumarate (Seroquel) 12.5 mg PO HS [facility] PRN Reason: Protocol Last Admin: 08/13/17 21:35 Dose: 12.5 mg Vitamin B Complex/Vit C/Folic Acid (Nephro-Aspen) 1 tab PO 0800 [facility] Last Admin: 08/13/17 08:37 Dose: 1 tab Zolpidem Tartrate (Ambien) 5 mg PO HS PRN; Protocol PRN Reason: Insomnia Last Admin: 08/13/17 21:33 Dose: 5 mg - Labs Labs: 08/14/17 05:45 08/14/17 05:45 - Constitutional Appears: No Acute Distress - Head Exam Head Exam: NORMOCEPHALIC - Eye Exam Eye Exam: Normal appearance - ENT Exam ENT Exam: Mucous Membranes Moist - Respiratory Exam Respiratory Exam: Decreased Breath Sounds, NORMAL BREATHING PATTERN - Cardiovascular Exam Cardiovascular Exam: +S1, +S2 - GI/Abdominal Exam GI & Abdominal Exam: Soft, Normal Bowel Sounds - Extremities Exam Extremities Exam: Normal Capillary Refill - Neurological Exam Neurological Exam: Alert, Awake Additional comments: confuse with sitter - Skin Skin Exam: Normal Color, Warm Assessment and Plan - Assessment and Plan (Free Text) Assessment: An 87 year old female who was brought to the ER for psychiatric evaluation. History of hypertension, arthritis, and advance dementia. Cardiac evaluation was called for bradycardia. Patient was taking Timolol eyedrops. Plan: Will follow up Holter monitor results Heart rate now on NSR 60's/min Controlled blood pressure Cardiac status stable Continue current treatment Continue current medications Will follow up Plan and treatment discussed with Dr. Mckeon
[2017-08-14] MEDS: Multivitamin Vitamin B Complex (Nephro-Vite) Tab PO SCH (08:00)
[2017-08-14] MEDS: Dorzolamide 2%/Timolol 0.5% 100 DROP/10 ML BOTTLE OU SCH ×2 (10:00→18:24)
[2017-08-14] MEDS: BRIMONIDINE TARTRATE 0.1% OS SCH ×3 (10:00→18:52)
[2017-08-14] MEDS ORDERED: Enoxaparin 40 mg Syringe SC SCH (10:00)
[2017-08-14] MEDS: Cefpodoxime (Vantin) 100 mg Tab PO SCH ×2 (10:53→21:12)
[2017-08-14] MEDS: Pantoprazole 40 mg EC Tab PO SCH (10:57)
--- NOTE | 2017-08-14 11:08 | CP.PCM.PN ---
Subjective - Date & Time of Evaluation Date of Evaluation: 08/14/17 Time of Evaluation: 09:25 - Subjective Subjective: No fevers, not in distress. Objective - Vital Signs/Intake and Output Vital Signs (last 24 hours): Temp Pulse Resp BP Pulse Ox 97.3 F L 66 20 143/55 L 98 08/14/17 08:12 08/14/17 08:12 08/14/17 08:12 08/14/17 08:12 08/14/17 08:12 Intake and Output: 08/14/17 08/14/17 06:59 18:59 Intake Total 180 Balance 180 - Medications Medications: Current Medications Acetaminophen (Tylenol 325mg Tab) 650 mg PO Q4H PRN PRN Reason: Pain, Mild (1-3) Amlodipine Besylate (Norvasc) 10 mg PO DAILY [facility] Aspirin (Aspirin Chewable) 81 mg PO DAILY [facility] Last Admin: 08/12/17 09:37 Dose: 81 mg Cefpodoxime Proxetil (Vantin) 100 mg PO Q12 [facility] PRN Reason: Protocol Stop: 08/16/17 10:01 Last Admin: 08/13/17 21:34 Dose: 100 mg Chlorthalidone (Hygroton) 25 mg PO DAILY [facility] Last Admin: 08/13/17 11:15 Dose: 25 mg Donepezil HCl (Aricept) 10 mg PO HS [facility] Last Admin: 08/13/17 21:34 Dose: 10 mg Dorzolamide/Timolol (Cosopt 2%-0.5% Opht) 1 drop OU BID [facility] Last Admin: 08/13/17 17:50 Dose: 1 drop Enoxaparin Sodium (Lovenox) 40 mg SC DAILY [facility] PRN Reason: Protocol Ergocalciferol (Drisdol 50,000 Intl Units Cap) 1 cap PO Q7D [facility] Last Admin: 08/09/17 14:27 Dose: 1 cap Ferrous Gluconate (Fergon) 324 mg PO TID [facility] Last Admin: 08/13/17 17:49 Dose: 324 mg Home Med (Home Med) 1 unit OU HS [facility] Last Admin: 08/13/17 21:53 Dose: Not Given Home Med (Home Med) 1 unit OS TID [facility] Last Admin: 08/13/17 17:49 Dose: Not Given Hydralazine HCl (Apresoline) 10 mg IVP Q6 PRN PRN Reason: Other Hydralazine HCl (Apresoline) 50 mg PO BID [facility] Last Admin: 08/13/17 21:34 Dose: 50 mg Lisinopril (Zestril) 40 mg PO DAILY [facility] Last Admin: 08/12/17 08:00 Dose: 40 mg Pantoprazole Sodium (Protonix Ec Tab) 40 mg PO ACB [facility] Last Admin: 08/13/17 08:38 Dose: 40 mg Quetiapine Fumarate (Seroquel) 12.5 mg PO HS [facility] PRN Reason: Protocol Last Admin: 08/13/17 21:35 Dose: 12.5 mg Vitamin B Complex/Vit C/Folic Acid (Nephro-Aspen) 1 tab PO 0800 [facility] Last Admin: 08/13/17 08:37 Dose: 1 tab Zolpidem Tartrate (Ambien) 5 mg PO HS PRN; Protocol PRN Reason: Insomnia Last Admin: 08/13/17 21:33 Dose: 5 mg - Labs Labs: 08/14/17 05:45 08/14/17 05:45 - Constitutional Appears: Chronically Ill - Head Exam Head Exam: NORMAL INSPECTION - Respiratory Exam Respiratory Exam: Decreased Breath Sounds - Cardiovascular Exam Cardiovascular Exam: +S1, +S2 - GI/Abdominal Exam GI & Abdominal Exam: Soft. absent: Tenderness Assessment and Plan - Assessment and Plan (Free Text) Plan: Assessment UTI with positive urinalysis HTN arthritis dementia COPD chronic renal failure Plan Continue PO Vantin for another 2 days
--- NOTE | 2017-08-14 12:38 | CP.PCM.PN ---
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 renal funtion stable Hypertension control with meds as ordered. consider Rt renal artery intervention if BP remains uncontrolled with medical management. started iron supplements MVI and weekly Vit D Dose meds/antibiotics for reduced GFR. Avoid fleets enema. Avoid nephrotoxins/ NSAIDs/ iodinated contrast (unless needed emergently) Glycemic control, Further work up for as per primary team. Thanks for allowing me to participate in care of your patient. Will follow with you. Please call if any Qs. had d/w team Dr Eliseo Johnson Office: [phone] reason for consult: HTN and CKD HPI: Pt is a 87 y/o F with hx of HTN, CKD stage 3 with baseline serum cr 1.4, dementia, osteoarthritis came with behavioral changes. she had CHURNER today for AMS , BP at that time increased to 200 range renal consult for CKD and HTN management. pt unable to provide any hx ROS: she denies SOB/chest pain/nausea/vomitting. alert awake and communicative today Physical Examination: General Appearance: Comfortable, in no acute respiratory distress, co- operative. thin built elderly female and appears malnourished Vitals reviewed and noted as below Head; Atraumatic, normocephalic ENT: no ulcers no thrush. Tongue is midline/moist. Oropharynx: no rash or ulcers. EYES: Pupils are equal, round and reactive to light accommodation. Eye muscles and extraocular movement intact. Sclera is anicteric. Neck; supple no lymphadenopathy, no thyromegaly or bruit Lungs: Normal respiratory rate/effort. Breath sounds appears decreased at bases but poor inspiratory efforts Heart: Normal rate. s1s2 normal. No rub or gallop. Extremities: trace edema. No varicose veins Neurological: Patient is alert, awake, oriented x 2 but has dementia. follows commands Skin: dry and warm. Normal turgor. No rash. Palpitation: Normal elasticity for age Abdomen: Abdomen is soft non tender no apparent organomegaly Psych: lack insight. has normal affect and mood MSK: no specific joint tenderness or swelling. Digits and nails normal, no deformity : kidney or bladder not palpable. Labs/imaging/EKG reviewed. Past medical history, past surgical history, social history, allergy reviewed and noted as below Family hx; unable to obtain Work up: UA with large LE CXR normal Objective - Vital Signs/Intake and Output Vital Signs (last 24 hours): Temp Pulse Resp BP Pulse Ox 97.3 F L 66 20 143/55 L 98 08/14/17 08:12 08/14/17 10:53 08/14/17 08:12 08/14/17 10:53 08/14/17 08:12 Intake and Output: 08/14/17 08/14/17 06:59 18:59 Intake Total 180 Balance 180 - Medications Medications: Current Medications Acetaminophen (Tylenol 325mg Tab) 650 mg PO Q4H PRN PRN Reason: Pain, Mild (1-3) Amlodipine Besylate (Norvasc) 10 mg PO DAILY [facility] Last Admin: 08/14/17 10:52 Dose: 10 mg Aspirin (Aspirin Chewable) 81 mg PO DAILY [facility] Last Admin: 08/14/17 10:50 Dose: 81 mg Cefpodoxime Proxetil (Vantin) 100 mg PO Q12 [facility] PRN Reason: Protocol Stop: 08/16/17 10:01 Last Admin: 08/14/17 10:53 Dose: 100 mg Chlorthalidone (Hygroton) 25 mg PO DAILY [facility] Last Admin: 08/14/17 10:51 Dose: 25 mg Donepezil HCl (Aricept) 10 mg PO HS [facility] Last Admin: 08/13/17 21:34 Dose: 10 mg Dorzolamide/Timolol (Cosopt 2%-0.5% Opht) 1 drop OU BID [facility] Last Admin: 08/13/17 17:50 Dose: 1 drop Enoxaparin Sodium (Lovenox) 30 mg SC DAILY [facility] PRN Reason: Protocol Ergocalciferol (Drisdol 50,000 Intl Units Cap) 1 cap PO Q7D [facility] Last Admin: 08/09/17 14:27 Dose: 1 cap Ferrous Gluconate (Fergon) 324 mg PO TID [facility] Last Admin: 08/14/17 10:50 Dose: 324 mg Home Med (Home Med) 1 unit OU HS [facility] Last Admin: 08/13/17 21:53 Dose: Not Given Home Med (Home Med) 1 unit OS TID [facility] Last Admin: 08/13/17 17:49 Dose: Not Given Hydralazine HCl (Apresoline) 10 mg IVP Q6 PRN PRN Reason: Other Hydralazine HCl (Apresoline) 50 mg PO BID [facility] Last Admin: 08/14/17 10:48 Dose: 50 mg Lisinopril (Zestril) 40 mg PO DAILY [facility] Last Admin: 08/14/17 10:53 Dose: 40 mg Pantoprazole Sodium (Protonix Ec Tab) 40 mg PO ACB [facility] Last Admin: 08/14/17 10:57 Dose: 40 mg Quetiapine Fumarate (Seroquel) 12.5 mg PO HS [facility] PRN Reason: Protocol Last Admin: 08/13/17 21:35 Dose: 12.5 mg Vitamin B Complex/Vit C/Folic Acid (Nephro-Aspen) 1 tab PO 0800 [facility] Last Admin: 08/14/17 08:00 Dose: 1 tab Zolpidem Tartrate (Ambien) 5 mg PO HS PRN; Protocol PRN Reason: Insomnia Last Admin: 08/13/17 21:33 Dose: 5 mg - Labs Labs: 08/14/17 05:45 08/14/17 05:45
[2017-08-14] MEDS: BIMATOPROST 0.01% OU SCH (21:11)
--- NOTE | 2017-08-15 07:12 | CP.PCM.PN ---
Subjective - Date & Time of Evaluation Date of Evaluation: 08/15/17 Time of Evaluation: 06:35 - Subjective Subjective: Awake, Lying in bed,confuse, with sitter, no distress, Reason for consultation and follow up: Cardiac evaluation for bradycardia, history of advanced dementia, hypertension, chronic kidney disease Seen and examined by me and Dr. Mckeon Objective - Vital Signs/Intake and Output Vital Signs (last 24 hours): Temp Pulse Resp BP Pulse Ox 98.0 F 60 20 120/52 L 98 08/14/17 16:15 08/15/17 06:00 08/14/17 16:15 08/14/17 18:23 08/14/17 16:15 - Medications Medications: Current Medications Acetaminophen (Tylenol 325mg Tab) 650 mg PO Q4H PRN PRN Reason: Pain, Mild (1-3) Amlodipine Besylate (Norvasc) 10 mg PO DAILY [facility] Last Admin: 08/14/17 10:52 Dose: 10 mg Aspirin (Aspirin Chewable) 81 mg PO DAILY [facility] Last Admin: 08/14/17 10:50 Dose: 81 mg Cefpodoxime Proxetil (Vantin) 100 mg PO Q12 [facility] PRN Reason: Protocol Stop: 08/16/17 10:01 Last Admin: 08/14/17 21:12 Dose: 100 mg Chlorthalidone (Hygroton) 25 mg PO DAILY [facility] Last Admin: 08/14/17 10:51 Dose: 25 mg Donepezil HCl (Aricept) 10 mg PO HS [facility] Last Admin: 08/14/17 21:10 Dose: 10 mg Dorzolamide/Timolol (Cosopt 2%-0.5% Opht) 1 drop OU BID [facility] Last Admin: 08/14/17 18:24 Dose: 1 drop Enoxaparin Sodium (Lovenox) 30 mg SC DAILY [facility] PRN Reason: Protocol Ergocalciferol (Drisdol 50,000 Intl Units Cap) 1 cap PO Q7D [facility] Last Admin: 08/09/17 14:27 Dose: 1 cap Ferrous Gluconate (Fergon) 324 mg PO TID [facility] Last Admin: 08/14/17 18:22 Dose: 324 mg Home Med (Home Med) 1 unit OU HS [facility] Last Admin: 08/14/17 21:11 Dose: Not Given Home Med (Home Med) 1 unit OS TID [facility] Last Admin: 08/14/17 18:52 Dose: Not Given Hydralazine HCl (Apresoline) 10 mg IVP Q6 PRN PRN Reason: Other Hydralazine HCl (Apresoline) 50 mg PO BID [facility] Last Admin: 08/14/17 18:23 Dose: 50 mg Lisinopril (Zestril) 40 mg PO DAILY [facility] Last Admin: 08/14/17 10:53 Dose: 40 mg Pantoprazole Sodium (Protonix Ec Tab) 40 mg PO ACB [facility] Last Admin: 08/14/17 10:57 Dose: 40 mg Quetiapine Fumarate (Seroquel) 12.5 mg PO HS [facility] PRN Reason: Protocol Last Admin: 08/14/17 21:11 Dose: 12.5 mg Vitamin B Complex/Vit C/Folic Acid (Nephro-Aspen) 1 tab PO 0800 [facility] Last Admin: 08/14/17 08:00 Dose: 1 tab Zolpidem Tartrate (Ambien) 5 mg PO HS PRN; Protocol PRN Reason: Insomnia Last Admin: 08/13/17 21:33 Dose: 5 mg - Labs Labs: 08/14/17 05:45 08/14/17 05:45 - Constitutional Appears: No Acute Distress - Head Exam Head Exam: NORMOCEPHALIC - ENT Exam ENT Exam: Mucous Membranes Dry - Respiratory Exam Respiratory Exam: Decreased Breath Sounds, NORMAL BREATHING PATTERN - Cardiovascular Exam Cardiovascular Exam: +S1, +S2 - GI/Abdominal Exam GI & Abdominal Exam: Soft, Normal Bowel Sounds - Extremities Exam Extremities Exam: Normal Capillary Refill - Neurological Exam Neurological Exam: Alert, Awake - Psychiatric Exam Psychiatric exam: Normal Affect - Skin Skin Exam: Dry, Warm Assessment and Plan - Assessment and Plan (Free Text) Assessment: An 87 year old female who was brought to the ER for psychiatric evaluation. History of hypertension, arthritis, and advance dementia. Cardiac evaluation was called for bradycardia. Patient was taking Timolol eyedrops. On antibiotics fro urinary tract infection. Plan: Confuse with sitter Cardiac status stable Controlled blood pressure Heart rate now on NSR 60's/min On antibiotics for UTI, ID on consult Continue current treatment Continue current medications Will follow up Plan and treatment discussed with Dr. Mckeon
[2017-08-15 08:06] VITALS: RESP 19
[2017-08-15] MEDS: Multivitamin Vitamin B Complex (Nephro-Vite) Tab PO SCH (08:42)
[2017-08-15] MEDS: Pantoprazole 40 mg EC Tab PO SCH (08:42)
[2017-08-15] MEDS: Enoxaparin 30 mg Syringe SC SCH (09:53)
[2017-08-15] MEDS: Cefpodoxime (Vantin) 100 mg Tab PO SCH ×2 (09:54→22:03)
[2017-08-15] MEDS: Dorzolamide 2%/Timolol 0.5% 100 DROP/10 ML BOTTLE OU SCH ×2 (09:55→17:14)
[2017-08-15] MEDS: BRIMONIDINE TARTRATE 0.1% OS SCH ×3 (09:56→17:03)
--- NOTE | 2017-08-15 11:07 | CP.PCM.PN ---
Subjective - Date & Time of Evaluation Date of Evaluation: 08/15/17 Time of Evaluation: 09:25 - Subjective Subjective: Comfortable, no fevers, not in distress. Objective - Vital Signs/Intake and Output Vital Signs (last 24 hours): Temp Pulse Resp BP Pulse Ox 97.6 F 61 19 147/56 L 97 08/15/17 08:06 08/15/17 08:06 08/15/17 08:06 08/15/17 08:06 08/15/17 08:06 - Medications Medications: Current Medications Acetaminophen (Tylenol 325mg Tab) 650 mg PO Q4H PRN PRN Reason: Pain, Mild (1-3) Amlodipine Besylate (Norvasc) 10 mg PO DAILY [facility] Last Admin: 08/14/17 10:52 Dose: 10 mg Aspirin (Aspirin Chewable) 81 mg PO DAILY [facility] Last Admin: 08/14/17 10:50 Dose: 81 mg Cefpodoxime Proxetil (Vantin) 100 mg PO Q12 [facility] PRN Reason: Protocol Stop: 08/16/17 10:01 Last Admin: 08/14/17 21:12 Dose: 100 mg Chlorthalidone (Hygroton) 25 mg PO DAILY [facility] Last Admin: 08/14/17 10:51 Dose: 25 mg Donepezil HCl (Aricept) 10 mg PO HS [facility] Last Admin: 08/14/17 21:10 Dose: 10 mg Dorzolamide/Timolol (Cosopt 2%-0.5% Opht) 1 drop OU BID [facility] Last Admin: 08/14/17 18:24 Dose: 1 drop Enoxaparin Sodium (Lovenox) 30 mg SC DAILY [facility] PRN Reason: Protocol Ergocalciferol (Drisdol 50,000 Intl Units Cap) 1 cap PO Q7D [facility] Last Admin: 08/09/17 14:27 Dose: 1 cap Ferrous Gluconate (Fergon) 324 mg PO TID [facility] Last Admin: 08/14/17 18:22 Dose: 324 mg Home Med (Home Med) 1 unit OU HS [facility] Last Admin: 08/14/17 21:11 Dose: Not Given Home Med (Home Med) 1 unit OS TID [facility] Last Admin: 08/14/17 18:52 Dose: Not Given Hydralazine HCl (Apresoline) 10 mg IVP Q6 PRN PRN Reason: Other Hydralazine HCl (Apresoline) 50 mg PO BID [facility] Last Admin: 08/14/17 18:23 Dose: 50 mg Lisinopril (Zestril) 40 mg PO DAILY [facility] Last Admin: 08/14/17 10:53 Dose: 40 mg Pantoprazole Sodium (Protonix Ec Tab) 40 mg PO ACB [facility] Last Admin: 08/15/17 08:42 Dose: 40 mg Quetiapine Fumarate (Seroquel) 12.5 mg PO HS [facility] PRN Reason: Protocol Last Admin: 08/14/17 21:11 Dose: 12.5 mg Vitamin B Complex/Vit C/Folic Acid (Nephro-Aspen) 1 tab PO 0800 [facility] Last Admin: 08/15/17 08:42 Dose: 1 tab Zolpidem Tartrate (Ambien) 5 mg PO HS PRN; Protocol PRN Reason: Insomnia Last Admin: 08/13/17 21:33 Dose: 5 mg - Labs Labs: 08/14/17 05:45 08/14/17 05:45 - Constitutional Appears: Chronically Ill - Head Exam Head Exam: NORMAL INSPECTION - Respiratory Exam Respiratory Exam: Decreased Breath Sounds - Cardiovascular Exam Cardiovascular Exam: +S1, +S2 - GI/Abdominal Exam GI & Abdominal Exam: Distended, Soft. absent: Tenderness Assessment and Plan - Assessment and Plan (Free Text) Plan: Assessment UTI with positive urinalysis HTN arthritis dementia COPD chronic renal failure Plan Continue PO Vantin for another day
--- NOTE | 2017-08-15 12:14 | CP.PCM.PN ---
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 renal funtion stable Hypertension control with meds as ordered. consider Rt renal artery intervention if BP remains uncontrolled with medical management. so far well controlled started iron supplements MVI and weekly Vit D Dose meds/antibiotics for reduced GFR. Avoid fleets enema. Avoid nephrotoxins/ NSAIDs/ iodinated contrast (unless needed emergently) Glycemic control, Further work up for as per primary team. Thanks for allowing me to participate in care of your patient. Will follow with you. Please call if any Qs. had d/w team Dr Eliseo Johnson Office: [phone] reason for consult: HTN and CKD HPI: Pt is a 87 y/o F with hx of HTN, CKD stage 3 with baseline serum cr 1.4, dementia, osteoarthritis came with behavioral changes. 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 pt unable to provide any hx ROS: she denies SOB/chest pain/nausea/vomitting. Physical Examination: General Appearance: Comfortable, in no acute respiratory distress, co- operative. thin built elderly female and appears malnourished Vitals reviewed and noted as below Head; Atraumatic, normocephalic ENT: no ulcers no thrush. Tongue is midline/moist. Oropharynx: no rash or ulcers. EYES: Pupils are equal, round and reactive to light accommodation. Eye muscles and extraocular movement intact. Sclera is anicteric. Neck; supple no lymphadenopathy, no thyromegaly or bruit Lungs: Normal respiratory rate/effort. Breath sounds appears decreased at bases but poor inspiratory efforts Heart: Normal rate. s1s2 normal. No rub or gallop. Extremities: trace edema. No varicose veins Neurological: Patient is alert, awake, oriented x 2 but has dementia. follows commands Skin: dry and warm. Normal turgor. No rash. Palpitation: Normal elasticity for age Abdomen: Abdomen is soft non tender no apparent organomegaly Psych: lack insight. has normal affect and mood MSK: no specific joint tenderness or swelling. Digits and nails normal, no deformity : kidney or bladder not palpable. Labs/imaging/EKG reviewed. Past medical history, past surgical history, social history, allergy reviewed and noted as below Family hx; unable to obtain Work up: UA with large LE CXR normal Objective - Vital Signs/Intake and Output Vital Signs (last 24 hours): Temp Pulse Resp BP Pulse Ox 97.6 F 82 19 138/56 L 97 08/15/17 08:06 08/15/17 09:54 08/15/17 08:06 08/15/17 09:54 08/15/17 08:06 - Medications Medications: Current Medications Acetaminophen (Tylenol 325mg Tab) 650 mg PO Q4H PRN PRN Reason: Pain, Mild (1-3) Amlodipine Besylate (Norvasc) 10 mg PO DAILY [facility] Last Admin: 08/15/17 09:54 Dose: 10 mg Aspirin (Aspirin Chewable) 81 mg PO DAILY [facility] Last Admin: 08/15/17 09:54 Dose: 81 mg Cefpodoxime Proxetil (Vantin) 100 mg PO Q12 [facility] PRN Reason: Protocol Stop: 08/16/17 10:01 Last Admin: 08/15/17 09:54 Dose: 100 mg Chlorthalidone (Hygroton) 25 mg PO DAILY [facility] Last Admin: 08/15/17 09:53 Dose: 25 mg Donepezil HCl (Aricept) 10 mg PO HS [facility] Last Admin: 08/14/17 21:10 Dose: 10 mg Dorzolamide/Timolol (Cosopt 2%-0.5% Opht) 1 drop OU BID [facility] Last Admin: 08/15/17 09:55 Dose: 1 drop Enoxaparin Sodium (Lovenox) 30 mg SC DAILY [facility] PRN Reason: Protocol Last Admin: 08/15/17 09:53 Dose: 30 mg Ergocalciferol (Drisdol 50,000 Intl Units Cap) 1 cap PO Q7D [facility] Last Admin: 08/09/17 14:27 Dose: 1 cap Ferrous Gluconate (Fergon) 324 mg PO TID [facility] Last Admin: 08/15/17 09:54 Dose: 324 mg Home Med (Home Med) 1 unit OU HS [facility] Last Admin: 08/14/17 21:11 Dose: Not Given Home Med (Home Med) 1 unit OS TID [facility] Last Admin: 08/15/17 09:56 Dose: Not Given Hydralazine HCl (Apresoline) 10 mg IVP Q6 PRN PRN Reason: Other Hydralazine HCl (Apresoline) 50 mg PO BID [facility] Last Admin: 08/15/17 09:53 Dose: 50 mg Lisinopril (Zestril) 40 mg PO DAILY [facility] Last Admin: 08/15/17 09:54 Dose: 40 mg Pantoprazole Sodium (Protonix Ec Tab) 40 mg PO ACB [facility] Last Admin: 08/15/17 08:42 Dose: 40 mg Quetiapine Fumarate (Seroquel) 12.5 mg PO HS [facility] PRN Reason: Protocol Last Admin: 08/14/17 21:11 Dose: 12.5 mg Vitamin B Complex/Vit C/Folic Acid (Nephro-Aspen) 1 tab PO 0800 [facility] Last Admin: 08/15/17 08:42 Dose: 1 tab Zolpidem Tartrate (Ambien) 5 mg PO HS PRN; Protocol PRN Reason: Insomnia Last Admin: 08/13/17 21:33 Dose: 5 mg - Labs Labs: 08/14/17 05:45 08/14/17 05:45
--- NOTE | 2017-08-15 18:36 | CARD ---
APPROVED REPORT Date of service: 08/15/2017 Reason for Test: BRADYCARDIA Hookup date: 2017-08-09 Scan date: 2017-08-15 Recording time: 23 HR 59 MIN Heart Rate Data Total Beats: [id number] Min HR: 44 BPM at 3:29AM Avg HR: 60 BPM Max HR: 85 BPM at 1:13AM Ventricular Ectopy Total VE Beats: 169 (0.2%) Couplets: 1 Events Single/Interp PVC: 144/0 Single/Late VE's: 14/0 Bi/Trigeminy: 0/9 Beats Supraventricular Ectopy Total VE Beats: 266 (0.4%) Atrial Runs: 2 Beats: 8 Longest: 5 Fastest: 133 BPM Atrial Pairs: 11 Events Longest R-R: 1.6 sec at 3:29 AM Single PAC's: 236 Conclusion SINUS RHYTHM / SINUS BRADYCARDIA MINIMUM HR 44 BPM MAXIMUM HR 85 BPM VERY RARE APC'S, ISOLATED PAIRED, 2 RUNS-LONGEST 5 BEATS, MAX RATE 133 BPM VERY RARE VPC'S, ISOLATED PAIRED, TRIGEMINY THERE WERE NO DIARY ENTRIES.
[2017-08-15] MEDS: BIMATOPROST 0.01% OU SCH (22:05)
--- NOTE | 2017-08-16 07:39 | CP.PCM.PN ---
Subjective - Date & Time of Evaluation Date of Evaluation: 08/16/17 Time of Evaluation: 06:25 - Subjective Subjective: No distress,awake, Lying in bed, confuse, with sitter, Reason for consultation and follow up: Cardiac evaluation for bradycardia, history of advanced dementia, hypertension, chronic kidney disease Seen and examined by me and Dr. Mckeon Objective - Vital Signs/Intake and Output Vital Signs (last 24 hours): Temp Pulse Resp BP Pulse Ox 97.9 F 52 L 19 120/51 L 97 08/15/17 17:48 08/15/17 17:48 08/15/17 17:48 08/15/17 17:48 08/15/17 17:48 - Medications Medications: Current Medications Acetaminophen (Tylenol 325mg Tab) 650 mg PO Q4H PRN PRN Reason: Pain, Mild (1-3) Amlodipine Besylate (Norvasc) 10 mg PO DAILY [facility] Last Admin: 08/15/17 09:54 Dose: 10 mg Aspirin (Aspirin Chewable) 81 mg PO DAILY [facility] Last Admin: 08/15/17 09:54 Dose: 81 mg Cefpodoxime Proxetil (Vantin) 100 mg PO Q12 [facility] PRN Reason: Protocol Stop: 08/16/17 10:01 Last Admin: 08/15/17 22:03 Dose: 100 mg Chlorthalidone (Hygroton) 25 mg PO DAILY [facility] Last Admin: 08/15/17 09:53 Dose: 25 mg Donepezil HCl (Aricept) 10 mg PO HS [facility] Last Admin: 08/15/17 22:04 Dose: 10 mg Dorzolamide/Timolol (Cosopt 2%-0.5% Opht) 1 drop OU BID [facility] Last Admin: 08/15/17 17:14 Dose: 1 drop Enoxaparin Sodium (Lovenox) 30 mg SC DAILY [facility] PRN Reason: Protocol Last Admin: 08/15/17 09:53 Dose: 30 mg Ergocalciferol (Drisdol 50,000 Intl Units Cap) 1 cap PO Q7D [facility] Last Admin: 08/09/17 14:27 Dose: 1 cap Ferrous Gluconate (Fergon) 324 mg PO TID [facility] Last Admin: 08/15/17 17:13 Dose: 324 mg Home Med (Home Med) 1 unit OU HS [facility] Last Admin: 08/15/17 22:05 Dose: Not Given Home Med (Home Med) 1 unit OS TID [facility] Last Admin: 08/15/17 17:03 Dose: Not Given Hydralazine HCl (Apresoline) 10 mg IVP Q6 PRN PRN Reason: Other Hydralazine HCl (Apresoline) 50 mg PO BID [facility] Last Admin: 08/15/17 17:13 Dose: 50 mg Lisinopril (Zestril) 40 mg PO DAILY [facility] Last Admin: 08/15/17 09:54 Dose: 40 mg Pantoprazole Sodium (Protonix Ec Tab) 40 mg PO ACB [facility] Last Admin: 08/15/17 08:42 Dose: 40 mg Quetiapine Fumarate (Seroquel) 12.5 mg PO HS [facility] PRN Reason: Protocol Last Admin: 08/15/17 22:04 Dose: 12.5 mg Vitamin B Complex/Vit C/Folic Acid (Nephro-Aspen) 1 tab PO 0800 [facility] Last Admin: 08/15/17 08:42 Dose: 1 tab Zolpidem Tartrate (Ambien) 5 mg PO HS PRN; Protocol PRN Reason: Insomnia Last Admin: 08/13/17 21:33 Dose: 5 mg - Labs Labs: 08/14/17 05:45 08/14/17 05:45 - Constitutional Appears: No Acute Distress - Head Exam Head Exam: NORMOCEPHALIC - ENT Exam ENT Exam: Mucous Membranes Moist - Respiratory Exam Respiratory Exam: Decreased Breath Sounds, NORMAL BREATHING PATTERN - Cardiovascular Exam Cardiovascular Exam: +S1, +S2 - GI/Abdominal Exam GI & Abdominal Exam: Soft, Normal Bowel Sounds - Exam Additional comments: incontinent - Extremities Exam Extremities Exam: Normal Capillary Refill - Neurological Exam Neurological Exam: Alert, Awake Additional comments: confuse with sitter - Skin Skin Exam: Dry, Warm Assessment and Plan - Assessment and Plan (Free Text) Assessment: An 87 year old female who was brought to the ER for psychiatric evaluation. History of hypertension, arthritis, and advance dementia. Cardiac evaluation was called for bradycardia. Patient was taking Timolol eyedrops. On antibiotics for urinary tract infection. Confuse with sitter. Plan: Cardiac status stable Controlled blood pressure Heart rate now on NSR 50's/min Confuse with sitter On oral Vantin for urinary tract infection ID on consult Continue current treatment Continue current medications Discharge planning Will follow up Plan and treatment discussed with Dr. Mckeon
[2017-08-16] MEDS: Pantoprazole 40 mg EC Tab PO SCH (08:00)
[2017-08-16 08:24] VITALS: TEMP 97.8; O2SAT 96
[2017-08-16] MEDS: Dorzolamide 2%/Timolol 0.5% 100 DROP/10 ML BOTTLE OU SCH (09:40)
[2017-08-16] MEDS: Enoxaparin 30 mg Syringe SC SCH (09:41)
[2017-08-16] MEDS: Cefpodoxime (Vantin) 100 mg Tab PO SCH (09:41)
[2017-08-16] MEDS: Multivitamin Vitamin B Complex (Nephro-Vite) Tab PO SCH (09:50)
[2017-08-16] MEDS: BRIMONIDINE TARTRATE 0.1% OS SCH ×2 (09:50→13:25)
[2017-08-16 10:01] VITALS: BP 134/56; PULSE 63
--- NOTE | 2017-08-16 10:36 | CP.PCM.PN ---
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 renal funtion stable Hypertension control with meds as ordered. consider Rt renal artery intervention if BP remains uncontrolled with medical management. so far well controlled with meds alone started iron supplements MVI and weekly Vit D Dose meds/antibiotics for reduced GFR. Avoid fleets enema. Avoid nephrotoxins/ NSAIDs/ iodinated contrast (unless needed emergently) Glycemic control, Further work up for as per primary team. Thanks for allowing me to participate in care of your patient. Will follow with you. Please call if any Qs. had d/w team Dr Eliseo Johnson Office: [phone] reason for consult: HTN and CKD HPI: Pt is a 87 y/o F with hx of HTN, CKD stage 3 with baseline serum cr 1.4, dementia, osteoarthritis came with behavioral changes. she had BLOCK PLACER today for AMS , BP at that time increased to 200 range renal consult for CKD and HTN management. pt unable to provide any hx ROS: she is less communicative today. unable to obtain much ROS Physical Examination: General Appearance: Comfortable, in no acute respiratory distress, co- operative. thin built elderly female and appears malnourished Vitals reviewed and noted as below Head; Atraumatic, normocephalic ENT: no ulcers no thrush. Tongue is midline/moist. Oropharynx: no rash or ulcers. EYES: Pupils are equal, round and reactive to light accommodation. Eye muscles and extraocular movement intact. Sclera is anicteric. Neck; supple no lymphadenopathy, no thyromegaly or bruit Lungs: Normal respiratory rate/effort. Breath sounds appears decreased at bases but poor inspiratory efforts Heart: Normal rate. s1s2 normal. No rub or gallop. Extremities: trace edema. No varicose veins Neurological: Patient is bit sleepy today Skin: dry and warm. Normal turgor. No rash. Palpitation: Normal elasticity for age Abdomen: Abdomen is soft non tender no apparent organomegaly Psych: lack insight. has normal affect and mood MSK: no specific joint tenderness or swelling. Digits and nails normal, no deformity : kidney or bladder not palpable. Labs/imaging/EKG reviewed. Past medical history, past surgical history, social history, allergy reviewed and noted as below Family hx; unable to obtain Work up: UA with large LE CXR normal Objective - Vital Signs/Intake and Output Vital Signs (last 24 hours): Temp Pulse Resp BP Pulse Ox 97.8 F 63 19 134/56 L 96 08/16/17 06:00 08/16/17 09:49 08/16/17 06:00 08/16/17 09:49 08/16/17 06:00 - Medications Medications: Current Medications Acetaminophen (Tylenol 325mg Tab) 650 mg PO Q4H PRN PRN Reason: Pain, Mild (1-3) Amlodipine Besylate (Norvasc) 10 mg PO DAILY [facility] Last Admin: 08/16/17 09:49 Dose: 10 mg Aspirin (Aspirin Chewable) 81 mg PO DAILY [facility] Last Admin: 08/16/17 09:49 Dose: 81 mg Chlorthalidone (Hygroton) 25 mg PO DAILY [facility] Last Admin: 08/16/17 09:41 Dose: 25 mg Donepezil HCl (Aricept) 10 mg PO HS [facility] Last Admin: 08/15/17 22:04 Dose: 10 mg Dorzolamide/Timolol (Cosopt 2%-0.5% Opht) 1 drop OU BID [facility] Last Admin: 08/16/17 09:40 Dose: 1 drop Enoxaparin Sodium (Lovenox) 30 mg SC DAILY [facility] PRN Reason: Protocol Last Admin: 08/16/17 09:41 Dose: 30 mg Ergocalciferol (Drisdol 50,000 Intl Units Cap) 1 cap PO Q7D [facility] Last Admin: 08/09/17 14:27 Dose: 1 cap Ferrous Gluconate (Fergon) 324 mg PO TID [facility] Last Admin: 08/16/17 09:49 Dose: 324 mg Home Med (Home Med) 1 unit OU HS [facility] Last Admin: 08/15/17 22:05 Dose: Not Given Home Med (Home Med) 1 unit OS TID [facility] Last Admin: 08/16/17 09:50 Dose: Not Given Hydralazine HCl (Apresoline) 10 mg IVP Q6 PRN PRN Reason: Other Hydralazine HCl (Apresoline) 50 mg PO BID [facility] Last Admin: 08/16/17 09:48 Dose: Not Given Lisinopril (Zestril) 40 mg PO DAILY [facility] Last Admin: 08/16/17 09:49 Dose: 40 mg Pantoprazole Sodium (Protonix Ec Tab) 40 mg PO ACB [facility] Last Admin: 08/16/17 08:00 Dose: 40 mg Quetiapine Fumarate (Seroquel) 12.5 mg PO HS [facility] PRN Reason: Protocol Last Admin: 08/15/17 22:04 Dose: 12.5 mg Vitamin B Complex/Vit C/Folic Acid (Nephro-Aspen) 1 tab PO 0800 [facility] Last Admin: 08/16/17 09:50 Dose: 1 tab Zolpidem Tartrate (Ambien) 5 mg PO HS PRN; Protocol PRN Reason: Insomnia Last Admin: 08/13/17 21:33 Dose: 5 mg - Labs Labs: 08/14/17 05:45 08/14/17 05:45
--- NOTE | 2017-08-16 12:42 | PN ---
DATE: 08/14/2017 SUBJECTIVE: Patient is lying in bed, supine, comfortable, no physical distress, no respiratory distress. She is awake and alert. Patient occasionally gets confused intermittently, but she is not agitated and she seems walking with assistance to the bathroom. PHYSICAL EXAMINATION: VITAL SIGNS: Temperature 98, heart rate 65, blood pressure 120/52, respirations 20, saturation 98% on room air. HEAD AND NECK: Normal. No JVD. No thyromegaly. CHEST: Clear bilaterally. CARDIAC: First sound and second sound normal. ABDOMEN: Soft, nontender. EXTREMITIES: No edema. NEUROLOGICAL: Normal except intermittent confusion. LABORATORY DATA: White count 6.9, hemoglobin 10, hematocrit 30.1, platelets 204. Chemistry: Sodium 143, potassium 3.8, chloride 105, bicarbonate 31, BUN 27, creatinine 1.3. Liver function test is normal. ALT, AST and alkaline phosphatase is normal. IMPRESSION AND PLAN: 1. Dementia with behavioral changes, agitation intermittently, confusion intermittently. Seen by psychiatrist and neurologist. We will continue Aricept. We will continue Seroquel 12.5 at bedtime. She may need more medications to calm her down. She still needs one-to-one observation 24 hours. 2. Insomnia. She needs Ambien 5 mg at bedtime. 3. Hypertension. Continue hydralazine. Seen by Nephrology, Dr. Gomez. Continue chlorthalidone, Norvasc 10 mg and Zestril 40 mg p.o. daily. We will continue to monitor her condition, seems stable. 4. Patient does have glaucoma. Continue Cosopt, continue Alphagan and continue other eye drops. Patient will need placement, will need also more medication to calm her down and probably will be a good candidate for long term placement. Jered Jacobsen MD
[2017-08-16] MEDS: Ergocalciferol 50,000 Intl Units Cap PO SCH (13:25)
--- NOTE | 2017-08-16 14:04 | PN ---
DATE: 08/15/2017 SUBJECTIVE: Patient is comfortable, no distress, doing very well. PHYSICAL EXAMINATION: On 08/15/2017, is as follows: VITAL SIGNS: Temperature 97.6, heart rate 61, blood pressure 147/56, respirations 19, saturating 97% on room air. HEAD AND NECK: Normal. No JVD. No thyromegaly. CHEST: Clear bilaterally. CARDIAC: First sound and second sound normal. ABDOMEN: Soft, nontender. EXTREMITIES: No edema. NEUROLOGIC: Normal. IMPRESSION AND PLAN: 1. Patient has dementia with behavioral changes, agitations. Patient took the IV out and refused blood work. We will try again, will need more psych meds. We will discuss further with the psychiatrist. Continue Aricept, continue Seroquel, and encourage p.o. intake. 2. Hypertension. Continue current medications, Norvasc, hydralazine, and chlorthalidone. We will monitor her kidney functions and the patient is not eating. Maybe diuretics which will help the blood pressure, but may worsen her kidney functions. We will discuss with the counter top maker. 3. Glaucoma. Continue Alphagan, continue Cosopt. Seems stable. No complaint of any headaches or visual disturbance. 4. Continue gastrointestinal and deep venous thrombosis prophylaxes, also cardiovascular protection with aspirin 81 mg daily. Patient will need physical therapy too. 5. Urinary tract infection. She is off cefepime. Continue Vantin 100 mg every 12 hours. CURRENT MEDICATIONS: Zestril 40 mg daily, Vantin 100 b.i.d., Tylenol, Seroquel 12.5, Protonix, Norvasc 10, Nephro-Aspen, Lovenox, chlorthalidone 25 mg daily, iron pills, vitamin D, Cosopt, aspirin, Aricept, hydralazine, and Ambien 5 mg at bedtime. Continue current medicines. Jered Jacobsen MD
--- NOTE | 2017-08-16 14:46 | CP.PCM.PN ---
Subjective - Date & Time of Evaluation Date of Evaluation: 08/16/17 Time of Evaluation: 10:20 - Subjective Subjective: No fevers, not in distress. Objective - Vital Signs/Intake and Output Vital Signs (last 24 hours): Temp Pulse Resp BP Pulse Ox 97.8 F 58 L 19 151/58 H 96 08/16/17 06:00 08/16/17 06:00 08/16/17 06:00 08/16/17 06:00 08/16/17 06:00 - Medications Medications: Current Medications Acetaminophen (Tylenol 325mg Tab) 650 mg PO Q4H PRN PRN Reason: Pain, Mild (1-3) Amlodipine Besylate (Norvasc) 10 mg PO DAILY [facility] Last Admin: 08/15/17 09:54 Dose: 10 mg Aspirin (Aspirin Chewable) 81 mg PO DAILY [facility] Last Admin: 08/15/17 09:54 Dose: 81 mg Cefpodoxime Proxetil (Vantin) 100 mg PO Q12 [facility] PRN Reason: Protocol Stop: 08/16/17 10:01 Last Admin: 08/15/17 22:03 Dose: 100 mg Chlorthalidone (Hygroton) 25 mg PO DAILY [facility] Last Admin: 08/15/17 09:53 Dose: 25 mg Donepezil HCl (Aricept) 10 mg PO HS [facility] Last Admin: 08/15/17 22:04 Dose: 10 mg Dorzolamide/Timolol (Cosopt 2%-0.5% Opht) 1 drop OU BID [facility] Last Admin: 08/15/17 17:14 Dose: 1 drop Enoxaparin Sodium (Lovenox) 30 mg SC DAILY [facility] PRN Reason: Protocol Last Admin: 08/15/17 09:53 Dose: 30 mg Ergocalciferol (Drisdol 50,000 Intl Units Cap) 1 cap PO Q7D [facility] Last Admin: 08/09/17 14:27 Dose: 1 cap Ferrous Gluconate (Fergon) 324 mg PO TID [facility] Last Admin: 08/15/17 17:13 Dose: 324 mg Home Med (Home Med) 1 unit OU HS [facility] Last Admin: 08/15/17 22:05 Dose: Not Given Home Med (Home Med) 1 unit OS TID [facility] Last Admin: 08/15/17 17:03 Dose: Not Given Hydralazine HCl (Apresoline) 10 mg IVP Q6 PRN PRN Reason: Other Hydralazine HCl (Apresoline) 50 mg PO BID [facility] Last Admin: 08/15/17 17:13 Dose: 50 mg Lisinopril (Zestril) 40 mg PO DAILY [facility] Last Admin: 08/15/17 09:54 Dose: 40 mg Pantoprazole Sodium (Protonix Ec Tab) 40 mg PO ACB [facility] Last Admin: 08/15/17 08:42 Dose: 40 mg Quetiapine Fumarate (Seroquel) 12.5 mg PO HS [facility] PRN Reason: Protocol Last Admin: 08/15/17 22:04 Dose: 12.5 mg Vitamin B Complex/Vit C/Folic Acid (Nephro-Aspen) 1 tab PO 0800 [facility] Last Admin: 08/15/17 08:42 Dose: 1 tab Zolpidem Tartrate (Ambien) 5 mg PO HS PRN; Protocol PRN Reason: Insomnia Last Admin: 08/13/17 21:33 Dose: 5 mg - Labs Labs: 08/14/17 05:45 08/14/17 05:45 - Constitutional Appears: Chronically Ill - Head Exam Head Exam: NORMAL INSPECTION - Respiratory Exam Respiratory Exam: Decreased Breath Sounds - Cardiovascular Exam Cardiovascular Exam: +S1, +S2 - GI/Abdominal Exam GI & Abdominal Exam: Soft. absent: Tenderness Assessment and Plan - Assessment and Plan (Free Text) Plan: Assessment UTI with positive urinalysis HTN arthritis dementia COPD chronic renal failure Plan will d/c PO Vantin today
--- NOTE | 2017-08-16 16:16 | PN ---
DATE: 08/16/2017 SUBJECTIVE: Psychiatry service signed off from this case because the patient was found to have delirium as well as dementia and the patient was doing relatively well. Psych consult was called back again in order to reassess mental status. The patient was seen today. The patient presented to be comfortable. The patient does not know where she is. When was given option either it is friend's house or hospital or pharmacy or this is her own house. The patient said probably it is her friend's house. The patient has periods of confusion still. The patient is demented on top of the confusion. At the same time, there is no aggression or agitation. The patient is compliant with the medication and treatment as well as has fair appetite and sleep. VITAL SIGNS: This short story writer reviewed vital signs, seems to be stable. Temperature 97.8, pulse is 63, blood pressure 134/56, respirations 19, oxygen saturation is 96. MEDICATIONS: Reviewed. The patient was on Tylenol, Norvasc, aspirin, Hygroton, Aricept, Lovenox, Fergon, hydralazine, lisinopril, Protonix, Seroquel 12.5 mg at the nighttime, Ambien as needed for insomnia and vitamin B complex. LABORATORY DATA: Reviewed. Chemistry reviewed. Urinalysis showed leukocyte esterase large. Toxicology is negative for any substances. Notes reviewed. As per Infectious Disease, the patient has urinary tract infection, hypertension, arthritis, chronic renal failure and antibiotics were discontinued today. The patient also was seen by Dr. Johnson. No acute need for renal replacement therapy at this time and renal function seems to be stable. MENTAL STATUS EXAMINATION: The patient appears to be alert, very confused. She does not know where she is. The patient had intermittent eye contact. Speech was disorganized, confabulation is obvious. Mood described as okay. Affect was reactive, but constricted. Thought process seems to be circumstantial. Thought content, the patient denied visual, auditory, tactile hallucinations. Denied paranoid ideation. The patient does not exhibit any aggressive or agitated behavior so far. IMPRESSION: Most likely delirium on dementia. The patient is improving. PLAN: Continue current management. Continue current medications. Seroquel needs to be continued. If the patient will be discharged to subacute rehab, the patient needs to be seen by psychiatrist as well as neurologist. Meanwhile, the patient deemed not to be in danger to self or others. Followup with psychiatrist need to be done within 72 hours after discharge. This short story writer will sign off. Should you have any questions give me a call back. Thank you very much. Milvia Romero MD
--- NOTE | 2017-08-17 07:47 | PN ---
DATE: 08/16/2017 TYPE OF DICTATION: Addendum to the initial progress note dictated by our nurse practitioner. REASON FOR ADDENDUM: Holter reviewed. No further sandra episode noted. Lowest heart rate was 49 at 04:00 a.m. No further intervention is required. Continue current treatment. We will follow with you. Thank you, Dr. Jacobsen, for providing us the opportunity in taking care of the patient, Brittani Lorenzana. Jose Mckeon MD
== END 2017-08-16 16:13 | DRG 690 ==
LOC: ED 22:08 → ERH 08-08 07:04 → 3RSO 08-08 09:21 → OBSVTOIN 08-10 12:59 → 5RSO 08-15 18:15
PROVIDERS: ADMIT Internal Medicine; ATTEND Internal Medicine
DX: N39.0 Urinary tract infection, site not specified (principal); F03.91 Unspecified dementia, unspecified severity, with behavioral disturbance; E87.0 Hyperosmolality and hypernatremia; B35.1 Tinea unguium; D50.9 Iron deficiency anemia, unspecified; E78.5 Hyperlipidemia, unspecified; E86.0 Dehydration; F41.9 Anxiety disorder, unspecified; G47.00 Insomnia, unspecified; H40.9 Unspecified glaucoma; I12.9 Hypertensive chronic kidney disease with stage 1 through stage 4 chronic kidney disease, or unspecified chronic kidney disease; I16.0 Hypertensive urgency; I27.20 Pulmonary hypertension, unspecified; J44.9 Chronic obstructive pulmonary disease, unspecified; L30.9 Dermatitis, unspecified; M19.90 Unspecified osteoarthritis, unspecified site; N18.3 Chronic kidney disease, stage 3 (moderate); Z79.82 Long term (current) use of aspirin; Z79.899 Other long term (current) drug therapy; R00.1 Bradycardia, unspecified; R41.0 Disorientation, unspecified